=== PATIENT | male | born 1945 | race Caucasian/White ===

== ENCOUNTER → 2016-05-21 | Outpatient (CLI) | payer MEDICARE ==
--- NOTE | 2016-05-21 23:23 | PN ---
This 71-year-old male patient has obstructive sleep apnea and is coming in for his yearly check. He has severe disease with an AHI of 67 and the patient is utilizing an Auto CPAP unit with a pressure minimum of 5, maximum of 20. The patient is utilizing a Quattro Air full-face mask. The patient has gained weight. He used to weigh 266. Currently he is up to 285, gaining around 19 pounds. His CPAP compliance data was checked, and his average CPAP use is 6.4 hours per night. P90 pressure is at 13.7. Leak factor is 34 L/minute and his AHI is down to 12. His other comorbidities include diabetes mellitus, gout and restless leg syndrome. The increased leak that was seen on the compliance data was also noted clinically by the patient, as the patient is reporting increased leak around his nose bridge while using the full-face mask. BP is 140/68, pulse 84, respiration 16, temperature 97.8, saturation 98% on room air. Neck size is 20. Weight is 285. BMI is 46.1. GENERAL APPEARANCE: Calm, comfortable. HEENT: Negative for JVD. No goiter or neck masses. He has significant crowding of posterior pharynx. LUNGS: Diminished breath sounds bilaterally; otherwise clear. HEART: Sounds are regular rate and rhythm. Normal S1, S2. ABDOMEN: Soft, nontender. No organomegaly. EXTREMITIES: There is no edema. There is no cyanosis or clubbing at this point. IMPRESSION: 1. Severe obstructive sleep apnea with an AHI of 67, currently undergoing Auto CPAP therapy. 2. Obesity with interval weight gain on the order of 19 pounds. Current BMI is up to 46.1. 3. Increased air leak around his full-face mask. AHI is down to 12.2. PLAN: 1. Will offer this patient an AirFit F10 full-face mask. 2. Encourage weight loss. 3. Anticipate improvement in his leak and obviously improvement in his apnea-hypopnea scores while being on treatment. 4. Will continue to follow. The patient will see me back in 6 months' time in followup for review of his compliancy data.
== END | disposition home or self-care (01) ==

== ENCOUNTER 2016-06-10 04:31 | Inpatient (IN) | payer MEDICARE ==
[2016-06-10] MEDS ORDERED: KETOROLAC 30 MG/ML 1 ML VIAL IVP STA (04:46)
[2016-06-10] MEDS ORDERED: ACETAMINOPHEN IV (For NPO) 1,000 MG in EMPTY BAG 1 BAG IVPB STA (04:46)
--- NOTE | 2016-06-10 04:46 | ED ---
General Adult HPI - General Chief complaint: Chest Pain Stated complaint: Chest Pain Time Seen by Provider: 06/10/16 04:32 Source: patient, RN notes reviewed, old records reviewed Mode of arrival: EMS Limitations: no limitations - History of Present Illness Initial comments: This is a 71-year-old male here for evaluation of chest pain, anterior chest pain with occasional shortness of breath. Patient doesn't significant heart history, and significant medical history. Patient states he was laying in bed became anxious that he was having a heart attack and called to his , his does not answer. Patient didn't continue to ambulate for fear of having heart attack and became increasing anxious. Patient is finally able to get her attention, any stone to the emergency. Patient states that this time his pain is improved no significant source of breath, he does not mild fever and chills or recent, no sick contacts or travel history. Patient states he is taking medications as provided for himself. - Related Data Home Medications Medication Instructions Recorded Confirmed Aspirin 162 mg PO DAILY 10/24/13 06/10/16 DULoxetine HCL [Cymbalta] 60 mg PO BID 10/24/13 06/10/16 Furosemide [Lasix] 40 mg PO BID 10/24/13 06/10/16 Gabapentin [Neurontin] 600 mg PO BID 10/24/13 06/10/16 Gabapentin [Neurontin] 800 mg PO BID 10/24/13 06/10/16 Insulin Aspart [NovoLOG] See Protocol SQ CONTINUOUS 10/24/13 06/10/16 Ubidecarenone [Co Q-10] 100 mg PO DAILY 05/14/14 06/10/16 Vitamin E (Dl,Tocopheryl Acet) 400 unit PO DAILY 05/14/14 06/10/16 [Vitamin E] Silodosin [Rapaflo] 8 mg PO DAILY 08/26/14 06/10/16 Ascorbic Acid [Vitamin C] 1,000 mg PO HS 08/14/15 06/10/16 Cholecalciferol [Vitamin D3] 2,000 unit PO DAILY 08/14/15 06/10/16 Magnesium Oxide [Mag-Ox] 250 mg PO Q48H 08/14/15 12/19/15 Multivit-Min/FA/Lycopene/Lut 1 tab PO DAILY 08/14/15 06/10/16 [Centrum Silver Tablet] [place]-3 Fatty Acids/Fish Oil [Fish 1 cap PO HS 08/14/15 06/10/16 Oil 1,000 mg Softgel] Potassium 99 mg PO Q48H 08/14/15 06/10/16 Vitamin B Complex 1 cap PO DAILY 08/14/15 06/10/16 metFORMIN HCL ER [Glucophage Xr] 500 mg PO BID 08/14/15 06/10/16 Biotin 5,000 mcg PO HS 10/11/15 06/10/16 Calcium Carbonate [Calcium] 500 mg PO Q48H 10/11/15 06/10/16 Metoprolol Tartrate [Lopressor] 50 mg PO TID 10/11/15 06/10/16 Simvastatin [Zocor] 40 mg PO HS 10/11/15 06/10/16 Lisinopril [Prinivil] 12.5 mg PO HS 12/18/15 06/10/16 Alfuzosin HCl [Alfuzosin HCl ER] 10 mg PO DAILY 06/10/16 06/10/16 Isosorbide Mononitrate ER [Imdur] 30 mg PO DAILY 06/10/16 06/10/16 Magnesium 400 mg PO BID 06/10/16 06/10/16 Omeprazole 40 mg PO BID 06/10/16 06/10/16 Allergies Allergy/AdvReac Type Severity Reaction Status Date / Time adhesive tape Allergy Rash/Hives Verified 06/10/16 05:37 ciprofloxacin HCl Allergy Unknown Verified 06/10/16 05:37 [From Cipro] diphenhydramine HCl Allergy Rapid Verified 06/10/16 05:37 [From Benadryl] Heart Rate morphine Allergy BLOCKS Verified 06/10/16 05:37 BLADDER nitrofurantoin Allergy Unknown Verified 06/10/16 05:37 macrocrystalline [From Macrobid] Review of Systems ROS Statement: Those systems with pertinent positive or pertinent negative responses have been documented in the HPI. ROS Other: All systems not noted in ROS Statement are negative. Past Medical History Past Medical History: Atrial Fibrillation, Coronary Artery Disease (CAD), CVA/ TIA, Diabetes Mellitus, GERD/Reflux, Hyperlipidemia, Hypertension, Memory Impairment, Musculoskeletal Disorder, Neurologic Disorder, Osteoarthritis (OA), Prostate Disorder, Sleep Apnea/CPAP/BIPAP, Syncope, Vascular Disorder Additional Past Medical History / Comment(s): cva x 3, multiple tia, multiple syncope episodes, gout, CELLULITIS FAHEEM LEGS, diabetic neuropathy, INSULIN PUMP FOR YEARS, 2 HEART STENTS, COUGH WITH HEMOPTYSIS History of Any Multi-Drug Resistant Organisms: MRSA Date of last positivie culture/infection: 2012 MDRO Source:: Right Leg and Left Leg Past Surgical History: Heart Catheterization With Stent, Hernia Repair, Orthopedic Surgery, Pacemaker Additional Past Surgical History / Comment(s): colonoscopy, 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 bilateral hand surg. for trigger finger & other hand surg FAHEEM cataract surg. 08-29-14 PACEMAKER INSERTION, UMBILICAL HERNIA REPAIR Past Anesthesia/Blood Transfusion Reactions: No Reported Reaction Date of Last Stent Placement:: 1998 Type of Cardiac Device: Permanent Pacemaker Device Placement Date:: MEDTRONIC 09-08-14 Past Psychological History: No Psychological Hx Reported Smoking Status: Never smoker Past Alcohol Use History: None Reported Past Drug Use History: None Reported - Past Family History Mother Family Medical History: CVA/TIA, Dementia Additional Family Medical History / Comment(s): STILL ALIVE AT AGE 95 HAS BEGININGS OF DEMENTIA Father Family Medical History: Congestive Heart Failure (CHF) Additional Family Medical History / Comment(s): Brother(s) Family Medical History: Liver Disease Additional Family Medical History / Comment(s): etoh abuse- General Exam Limitations: no limitations General appearance: alert, in no apparent distress Head exam: Present: atraumatic, normocephalic, normal inspection Eye exam: Present: normal appearance, PERRL, EOMI. Absent: scleral icterus, conjunctival injection, periorbital swelling ENT exam: Present: normal exam, mucous membranes moist Neck exam: Present: normal inspection. Absent: tenderness, meningismus, lymphadenopathy Respiratory exam: Present: normal lung sounds bilaterally. Absent: respiratory distress, wheezes, rales, rhonchi, stridor Cardiovascular Exam: Present: regular rate, normal rhythm, normal heart sounds. Absent: systolic murmur, diastolic murmur, rubs, gallop, clicks GI/Abdominal exam: Present: soft, normal bowel sounds. Absent: distended, tenderness, guarding, rebound, rigid Extremities exam: Present: normal inspection, full ROM, normal capillary refill. Absent: tenderness, pedal edema, joint swelling, calf tenderness Back exam: Present: normal inspection Neurological exam: Present: alert, oriented X3, CN II-XII intact Psychiatric exam: Present: normal affect, normal mood Skin exam: Present: warm, dry, intact, normal color. Absent: rash Course Vital Signs 06/10/16 06/10/16 04:36 06:08 Temperature 100.6 F H Pulse Rate 83 58 L Respiratory 18 18 Rate Blood Pressure 166/70 131/63 O2 Sat by Pulse 95 96 Oximetry - Reevaluation(s) Reevaluation #1: 06/10/16 05:31 Patient's improving with fever control EKG Findings - EKG Comments: EKG Findings:: EKG shows ventricle paced rhythm rate of 72, QRS 160, QTC 480 Medical Decision Making - Medical Decision Making 71 year fevers or chest pain, states he feels a year heartache, significant heart disease, patient's initial EKG and troponin are negative, patient be admitted for cardiac observation and anticoagulation. Patient also has elevated fever, x-ray negative, flu test negative will observe with fever control - Lab Data Result diagrams: 06/10/16 04:50 06/10/16 04:50 Lab Results 06/10/16 06/10/16 06/10/16 Range/Units 04:50 04:50 04:50 WBC 10.7 H (3.8-10.6) k/uL RBC 4.70 (4.30-5.90) m/uL Hgb 13.9 (13.0-17.5) gm/dL Hct 42.0 (39.0-53.0) % MCV 89.4 (80.0-100.0) fL MCH 29.5 (25.0-35.0) pg MCHC 33.0 (31.0-37.0) g/dL RDW 14.3 (11.5-15.5) % Plt Count 183 (150-450) k/uL Neutrophils % 70 % Lymphocytes % 14 % Monocytes % 6 % Eosinophils % 7 % Basophils % 1 % Neutrophils # 7.5 (1.3-7.7) k/uL Lymphocytes # 1.5 (1.0-4.8) k/uL Monocytes # 0.7 (0-1.0) k/uL Eosinophils # 0.7 (0-0.7) k/uL Basophils # 0.1 (0-0.2) k/uL PT (9.0-12.0) sec INR (<1.1) APTT (22.0-30.0) sec Sodium 140 (137-145) mmol/L Potassium 4.7 (3.5-5.1) mmol/L Chloride 105 (98-107) mmol/L Carbon Dioxide 25 (22-30) mmol/L Anion Gap 10 mmol/L BUN 20 (9-20) mg/dL Creatinine 0.80 (0.66-1.25) mg/dL Est GFR (MDRD) Af Amer >60 (>60 ml/min/1.73 sqM) Est GFR (MDRD) Non-Af >60 (>60 ml/min/1.73 sqM) Glucose 154 H (74-99) mg/dL Calcium 8.9 (8.4-10.2) mg/dL Magnesium 1.8 (1.6-2.3) mg/dL Total Bilirubin 1.9 H (0.2-1.3) mg/dL AST 43 (17-59) U/L ALT 30 (21-72) U/L Alkaline Phosphatase 105 (38-126) U/L Total Creatine Kinase 87 (55-170) U/L CK-MB (CK-2) 1.2 (0.0-2.4) ng/mL CK-MB (CK-2) Rel Index 1.4 Troponin I 0.017 (0.000-0.034) ng/mL NT-Pro-B Natriuret Pep pg/mL Total Protein 7.1 (6.3-8.2) g/dL Albumin 3.8 (3.5-5.0) g/dL Lipase 48 (23-300) U/L Influenza Type A RNA (Not Detectd) Influenza Type B (PCR) (Not Detectd) 06/10/16 06/10/16 06/10/16 Range/Units 04:50 04:50 05:10 WBC (3.8-10.6) k/uL RBC (4.30-5.90) m/uL Hgb (13.0-17.5) gm/dL Hct (39.0-53.0) % MCV (80.0-100.0) fL MCH (25.0-35.0) pg MCHC (31.0-37.0) g/dL RDW (11.5-15.5) % Plt Count (150-450) k/uL Neutrophils % % Lymphocytes % % Monocytes % % Eosinophils % % Basophils % % Neutrophils # (1.3-7.7) k/uL Lymphocytes # (1.0-4.8) k/uL Monocytes # (0-1.0) k/uL Eosinophils # (0-0.7) k/uL Basophils # (0-0.2) k/uL PT 11.1 (9.0-12.0) sec INR 1.1 (<1.1) APTT 23.8 (22.0-30.0) sec Sodium (137-145) mmol/L Potassium (3.5-5.1) mmol/L Chloride (98-107) mmol/L Carbon Dioxide (22-30) mmol/L Anion Gap mmol/L BUN (9-20) mg/dL Creatinine (0.66-1.25) mg/dL Est GFR (MDRD) Af Amer (>60 ml/min/1.73 sqM) Est GFR (MDRD) Non-Af (>60 ml/min/1.73 sqM) Glucose (74-99) mg/dL Calcium (8.4-10.2) mg/dL Magnesium (1.6-2.3) mg/dL Total Bilirubin (0.2-1.3) mg/dL AST (17-59) U/L ALT (21-72) U/L Alkaline Phosphatase (38-126) U/L Total Creatine Kinase (55-170) U/L CK-MB (CK-2) (0.0-2.4) ng/mL CK-MB (CK-2) Rel Index Troponin I (0.000-0.034) ng/mL NT-Pro-B Natriuret Pep 1320 pg/mL Total Protein (6.3-8.2) g/dL Albumin (3.5-5.0) g/dL Lipase (23-300) U/L Influenza Type A RNA Not Detected (Not Detectd) Influenza Type B (PCR) Not Detected (Not Detectd) - Radiology Data Radiology results: report reviewed (Chest x-ray 2 views negative for acute disease), image reviewed Critical Care Time Critical Care Time: Yes Total Critical Care Time: 31 Disposition Clinical Impression: Chest pain, Fever of unknown origin Disposition: ADMITTED IP TO THIS HOSP Condition: Fair Referrals: Domenico Pickard MD [Primary Care Provider] - 1-2 days
[2016-06-10 05:16] LABS: Basophils # (A) 0.1 k/uL (0-0.2); Basophils % (A) 1 %; CH 29.7; CHCM 33.3; Eosinophils # (A) 0.7 k/uL (0-0.7); Eosinophils % (A) 7 %; HDW 2.94; HGB 13.9 gm/dL (13.0-17.5); Luc # (Auto) 0.27; Luc % (Auto) 3; Lymphocytes # (A) 1.5 k/uL (1.0-4.8); Lymphocytes % (A) 14 %; MCH 29.5 pg (25.0-35.0); MCV 89.4 fL (80.0-100.0); Mean Platelet Volume 7.5; Monocytes # (A) 0.7 k/uL (0-1.0); Monocytes % (A) 6 %; Neutrophils # (A) 7.5 k/uL (1.3-7.7); Neutrophils % (A) 70 %; RDW 14.3 % (11.5-15.5); WBC 10.7 k/uL (3.8-10.6); WBC (Perox) 11.11
[2016-06-10 05:27] LABS: ALT 30 U/L (21-72); AST 43 U/L (17-59); Alkaline Phosphatase 105 U/L (38-126); Anion Gap 10 mmol/L; Blood Urea Nitrogen 20 mg/dL (9-20); Calcium 8.9 mg/dL (8.4-10.2); Carbon Dioxide 25 mmol/L (22-30); Chloride 105 mmol/L (98-107); Glucose 154 mg/dL (74-99); Magnesium 1.8 mg/dL (1.6-2.3); Non-African American GFR(MDRD) >60 (>60 ml/min/1.73 sqM); Potassium 4.7 mmol/L (3.5-5.1); Sodium 140 mmol/L (137-145); Total Bilirubin 1.9 mg/dL (0.2-1.3); Total Protein 7.1 g/dL (6.3-8.2)
[2016-06-10] MEDS ORDERED: ASPIRIN 81 MG CHEW PO STA (05:34)
[2016-06-10] MEDS ORDERED: NITROGLYCERIN SL TABS 0.4 MG TAB SUBLINGUAL PRN ×2 (05:34→08:19)
[2016-06-10] MEDS ORDERED: HEPARIN SODIUM,PORCINE 5,000 UNIT/ML 1 ML VIAL IV ONE (05:34)
--- NOTE | 2016-06-10 05:39 | XR ---
EXAMINATION TYPE: XR chest 2V DATE OF EXAM: 06/10/2016 5:02 AM COMPARISON: 12/15/2015 HISTORY: Chest pain TECHNIQUE: Frontal and lateral views of the chest are obtained. FINDINGS: Heart is enlarged. There is evidence of mild pulmonary edema. There is left axillary pacem christy with the lead tips in the right ventricle. There are no hilar masses. There is no pleural effusi on. IMPRESSION: There is evidence of new mild pulmonary edema compared to last exam. Cardiomegaly.
[2016-06-10 05:45] LABS: INR 1.1 (<1.1); Partial Thromboplastin Time 23.8 sec (22.0-30.0); Prothrombin Time 11.1 sec (9.0-12.0)
[2016-06-10] MEDS ORDERED: HEPARIN SODIUM,PORCINE/D5W PMX 25,000 UNIT in DEXTROSE/WATER 1 500ML.BAG IV SCH (05:45)
[2016-06-10 05:49] LABS: Creatine Kinase MB 1.2 ng/mL (0.0-2.4); Troponin I 0.017 ng/mL (0.000-0.034)
[2016-06-10] MEDS ORDERED: HEPARIN SODIUM,PORCINE 5,000 UNIT/ML 1 ML VIAL IV PRN (06:55)
[2016-06-10 08:11] VITALS: BMI 40.4
[2016-06-10] MEDS ORDERED: ALPRAZolam 0.5 MG TAB PO PRN (08:19)
[2016-06-10] MEDS ORDERED: ALPRAZolam 0.25 MG TAB PO PRN (08:19)
[2016-06-10] MEDS ORDERED: ASPIRIN 325 MG TAB PO STA (08:19)
[2016-06-10] MEDS ORDERED: ATORVASTATIN 80 MG TAB PO STA (08:19)
[2016-06-10] MEDS ORDERED: SODIUM CHLORIDE 0.9% 1,000 ML in EMPTY BAG 1 BAG IV ONE (08:19)
--- NOTE | 2016-06-10 08:30 | CONS ---
DATE OF CONSULTATION: CHIEF COMPLAINT: Chest pain. Tip is a 71-year-old gentleman with history of permanent pacemaker, coronary artery disease, status post angioplasty, hypertension, and [id number]-[id number] diabetes and morbid obesity who comes to hospital complaining of chest pain. He describes it as a precordial chest pressure that radiated to his left arm, moderate intensity, came on at rest, unrelated to exertion and associated with diaphoresis. Patient gradually became pain free with intravenous heparin and nitrates. At the time of my evaluation, he is pain free and hemodynamically stable. He has had one set of troponin that is negative. EKG shows paced rhythm. Past medical history is significant for coronary artery disease, status post angioplasty, hypertension, [id number] diabetes. Medications include aspirin, Prinivil, magnesium ProAir, Imdur, vitamin E, D, Co-Q10, Zocor 40 q. daily, Rapaflo, fish oil, multivitamin, Lopressor 50 t.i.d., Neurontin, Lasix, Cymbalta, calcium, vitamin C, and Glucophage. Allergic to CIPRO, BENADRYL, MORPHINE and MACROBID. Family history is negative for premature coronary artery disease. Social history is negative for current smoking, EtOH abuse, or drug abuse. REVIEW OF SYSTEMS: HEENT is unremarkable. CARDIAC: As described above. RESPIRATORY: Negative. GI: Negative. GENITOURINARY: Negative. ALLERGY/IMMUNOLOGY: Negative. MUSCULOSKELETAL: Negative. ENDOCRINE: Negative. DERM: Negative. CONSTITUTIONAL: Negative. ONCOLOGICAL: Negative. The rest of the system review is not relevant. On exam, comfortable at rest. Vital signs are stable. There is no jugular venous distention. Carotid upstroke is normal. There is no bruit. Chest exam reveals good air entry bilaterally. Heart exam reveals first and second heart sounds. No gallop, no murmur. Abdomen is soft, nontender. Exam of extremities did not reveal any edema. Peripheral pulses are felt. EKG is as described above. Cardiac enzymes are negative. Creatinine is normal. ASSESSMENT: 1. Unstable angina. 2. Sick sinus syndrome, status post permanent pacemaker placement. 3. Paroxysmal atrial fibrillation. PLAN: Patient is pain free at the moment. Will admit him to hospital and will need to go through cardiac catheterization and hopefully tomorrow by Dr. Christofer Vargas.
[2016-06-10 08:39] LABS: Glucose,Whole Blood 134 mg/dL (75-99)
[2016-06-10] MEDS: FUROSEMIDE 40 MG TAB PO SCH ×2 (12:07→20:42)
[2016-06-10] MEDS: ISOSORBIDE MONONITRATE ER 30 MG TAB.ER.24H PO SCH (12:07)
[2016-06-10] MEDS: metFORMIN 500 MG TAB PO SCH ×2 (12:08→18:09)
[2016-06-10] MEDS: INSULIN LISPRO (humaLOG) 300 UNIT/3 ML VIAL SQ SCH ×3 (12:08→20:42)
[2016-06-10] MEDS: MULTIVITAMINS, THERA 1 EACH TAB PO SCH (12:08)
--- NOTE | 2016-06-10 12:12 | HP ---
DATE OF ADMISSION: 06/10/2016 PRESENTING COMPLAINT: Chest pain. HISTORY OF PRESENTING COMPLAINT: This is a very pleasant 71-year-old patient with rather extensive medical history. Patient's family doctor is Dr. Domenico Pickard. Patients chronic stable medical conditions include diabetes mellitus type 2 on insulin pump, GERD, hyperlipidemia, hypertension, osteoarthritis, sleep apnea, atrial fibrillation has a pacemaker. Patient around 3:00 in the morning woke up with a sharp chest pain in the infraclavicular around the nipple area. Lasted for 30 seconds. Then patient had a compression-like sensation of the chest for a good 15 minutes at least. There is also numbness down the left arm. Patient became short of breath. Because of the entire presentation, he was concerned and decided to come in. Patient normally otherwise able to get around with no chest pain. Admitted with unstable angina. Patient has been having intermittent hemoptysis for which he follows a block cleaner in outpatient. REVIEW OF SYSTEMS: CONSTITUTIONAL: None. HEENT: None. RESPIRATORY: As above. CARDIOVASCULAR: As above. GASTROINTESTINAL: None. GENITOURINARY: None. MUSCULOSKELETAL: Pain in the joints. HEMATOLOGIC: None. LYMPHATICS: None. PSYCHIATRY: None. NEUROLOGICAL: Numbness, tingling in the feet. DERMATOLOGICAL: None. Past medical history of coronary artery disease, diabetes mellitus type 2, GERD, hyperlipidemia, hypertension, osteoarthritis, sleep apnea, paroxysmal atrial fibrillation, gout, diabetic neuropathy, abdominal hernia. PAST SURGICAL HISTORY: Cardiac cath with stent, hypertension, amputation of the third toe of the left foot, rotator cuff injury, bilateral hand surgery for trigger finger, pacemaker. SOCIAL HISTORY: Nonsmoker, , drinks alcohol occasionally, retired. Family history of dementia, congestive heart failure. HOME MEDICATIONS: 1. Metformin. 2. Glucophage XL 500 mg p.o. b.i.d. 3. Vitamin E 400 units p.o. daily. 4. Vitamin B complex 1 capsule p.o. daily. 5. CoQ10 one hundred mg p.o. daily. 6. Zocor 40 mg q.h.s. 7. Rapaflo 8 mg p.o. daily. 8. Potassium 99 mEq p.o. q.48 hours. 9. Fish oil 1 capsule p.o. q.h.s. 10. Centrum Silver 1 tablet p.o. daily. 11. Lopressor 50 mg p.o. t.i.d. 12. Magnesium oxide 250 mg p.o. q.48 hours. 13. Magnesium 400 mg p.o. b.i.d. 14. Prinivil 5 mg p.o. q.h.s. 15. Imdur ER 30 mg p.o. daily. 16. NovoLog insulin pump. 17. Neurontin 800 mg p.o. b.i.d. 18. Neurontin 600 mg p.o. b.i.d. 19. Lasix 40 mg p.o. b.i.d. 20. Cymbalta 60 mg b.i.d. 21. Vitamin D3 two thousand units p.o. q.48 hours. 22. Calcium 500 units p.o. q. 48. 23. Biotin 5000 mcg p.o. q.h.s. 24. Aspirin 81 mg p.o. b.i.d. 25. Vitamin C 1000 mg p.o. q.h.s. 26. Alfuzosin 10 mg p.o. daily. 27. ProAir 1 to 2 puffs q.6 p.r.n. Allergies to ADHESIVE, CIPRO, BENADRYL, MORPHINE, NITROFURANTOIN. On examination, vitals signs on presentation: Temperature 100.6, pulse 83, respirations 18, blood pressure 160/70, pulse ox 95% on 2 L. Repeat temperature 99.1. GENERAL APPEARANCE: Obese; BMI of 41.5. Lying in bed, not in distress. EYES: Pupils equal. Conjunctivae normal. HEENT: External appearance of nose and ears normal. Oral cavity normal. NECK: JVD unable to assess. Mass not palpable. Respiratory effort increased. LUNGS: Diminished breath sounds. CARDIOVASCULAR: First and second sounds normal, some mild edema. ABDOMEN: Distended, soft. Liver and spleen not palpable. LYMPHATIC: No lymph nodes palpable in neck or axillae. PSYCHIATRY: Alert and oriented x3. Mood and affect normal. NEUROLOGICAL: Pupils equal. Cranial nerves grossly intact, slightly decreased sensation in the feet. INVESTIGATIONS: White count 10.7, hemoglobin 13.9. Potassium 4.7, influenza A and B is negative. Chest x-ray shows possibly pulmonary edema and there is questionable infiltrate at the base. ASSESSMENT: 1. Possible pneumonia in a patient with low-grade fever, sharp pain, high white count, community-acquired. 2. Possible unstable angina in a patient with known coronary artery disease and stent. 3. Paroxysmal atrial fibrillation. 4. Diabetes mellitus type 2, chronically on insulin pump. 5. Gastroesophageal reflux disease. 6. Hyperlipidemia. 7. Essential hypertension. 8. Primary osteoarthritis of multiple joints, bilateral. 9. Benign prostatic hypertrophy. 10. Chronic sleep apnea. 11. Diabetes causing peripheral neuropathy. PLAN: Patient was put on IV heparin. Will also start the patient on IV ceftriaxone. Cardiology has been consulted. Care was discussed with the patient.
[2016-06-10 12:24] LABS: Glucose,Whole Blood 157 mg/dL (75-99)
[2016-06-10] MEDS: GABAPENTIN 300 MG CAP PO SCH ×2 (12:39→20:34)
[2016-06-10] MEDS: DULoxetine HCL 60 MG CAPSULE.DR PO SCH ×2 (12:40→20:34)
[2016-06-10 12:48] LABS: Creatine Kinase MB 1.2 ng/mL (0.0-2.4); Troponin I 0.03 ng/mL (0.000-0.034)
[2016-06-10 13:32] LABS: Hemoglobin A1C 8.5 % (4.2-6.1)
[2016-06-10] MEDS: ALBUTEROL NEBULIZED 2.5 MG/3 ML INHALATION SCH ×2 (15:39→21:46)
[2016-06-10] MEDS: METOPROLOL TARTRATE 50 MG TAB PO SCH ×2 (15:53→20:34)
[2016-06-10 17:13] LABS: Glucose,Whole Blood 177 mg/dL (75-99)
[2016-06-10 17:54] LABS: Creatine Kinase MB 1.3 ng/mL (0.0-2.4); Troponin I 0.026 ng/mL (0.000-0.034)
[2016-06-10 20:22] LABS: Glucose,Whole Blood 216 mg/dL (75-99)
[2016-06-10] MEDS ORDERED: ACETAMINOPHEN TAB 325 MG TAB PO PRN (20:27)
[2016-06-10] MEDS: MAGNESIUM OXIDE 400 MG TAB PO SCH (20:34)
[2016-06-10] MEDS ORDERED: DULoxetine HCL 60 MG CAPSULE.DR PO SCH (21:00)
[2016-06-10] MEDS ORDERED: NON-FORMULARY DRUG (Simvastatin [Zocor] 40 MG) PO SCH (21:00)
[2016-06-10] MEDS ORDERED: LISINOPRIL 5 MG TAB PO SCH (21:00)
[2016-06-10] MEDS ORDERED: NON-FORMULARY DRUG (Omega-3 Fatty Acids/Fish Oil [Fish Oil 1,000 Mg Softgel] 1 CAP) PO SCH (21:00)
[2016-06-10] MEDS ORDERED: GABAPENTIN 300 MG CAP PO SCH (21:00)
[2016-06-11] MEDS: ALBUTEROL NEBULIZED 2.5 MG/3 ML INHALATION SCH ×3 (00:42→12:20)
[2016-06-11] MEDS ORDERED: ALBUTEROL NEBULIZED 2.5 MG/3 ML INHALATION PRN (00:46)
[2016-06-11 07:13] LABS: Glucose,Whole Blood 330 mg/dL (75-99)
[2016-06-11] MEDS: GABAPENTIN 300 MG CAP PO SCH (07:57)
[2016-06-11] MEDS ORDERED: REGADENOSON 0.4 MG/5 ML SYRINGE IV ONE (07:58)
[2016-06-11] MEDS ORDERED: AMINOPHYLLINE 500 MG/20 ML VIAL IV PRN (07:58)
[2016-06-11] MEDS: INSULIN LISPRO (humaLOG) 300 UNIT/3 ML VIAL SQ SCH ×3 (08:10→17:53)
[2016-06-11 08:40] VITALS: RESP 18
[2016-06-11] MEDS ORDERED: ASPIRIN 325 MG TAB PO SCH (09:00)
[2016-06-11] MEDS ORDERED: B COMPLEX-VIT C-VIT E-ZINC 1 EACH TAB PO SCH (09:00)
--- NOTE | 2016-06-11 10:43 | EST ---
DATE OF SERVICE: 06/11/2016 AGE: 71Y SEX: M HT: 70" WT: 289 lbs. Protocol Arslan: Other: Lexiscan Cardiolite Stage: Dur. of Exercise: *Heart Rate Blood Pressure *Rest: 62 Rest: 180/67 * *Max. Achieved: 72 Maximum BP: 187/54 85% PMHR: 126 100% PMHR: 148 *METS: INDICATION OF STUDY: Chest pain. MEDICATIONS: STRESS DATA: Pretesting physical examination showed heart rate of 62, pressure is 182/67 mmHg. Baseline EKG showed sinus rhythm PVCs. A 0.4 mg of Lexiscan was given to the patient over 15 seconds per protocol. Max heart rate was 72 beats per minute and maximum pressure was 187/54 mmHg. Clinically, the patient did not have any symptoms and the EKG did not show any significant ST or T wave abnormalities consistent with ischemia. CONCLUSION: 1. Nondiagnostic electrocardiogram stress test in response to Lexiscan. 2. Please follow up on the Cardiolite portion on separate report from the radiology department.
[2016-06-11] MEDS: MULTIVITAMINS, THERA 1 EACH TAB PO SCH (11:18)
[2016-06-11] MEDS: DULoxetine HCL 60 MG CAPSULE.DR PO SCH (11:18)
[2016-06-11] MEDS: metFORMIN 500 MG TAB PO SCH ×2 (11:18→17:52)
[2016-06-11] MEDS: FUROSEMIDE 40 MG TAB PO SCH ×2 (11:18→17:53)
[2016-06-11] MEDS: ISOSORBIDE MONONITRATE ER 30 MG TAB.ER.24H PO SCH (11:19)
[2016-06-11] MEDS: METOPROLOL TARTRATE 50 MG TAB PO SCH ×2 (11:19→17:53)
[2016-06-11] MEDS: MAGNESIUM OXIDE 400 MG TAB PO SCH (11:19)
[2016-06-11 12:11] LABS: Glucose,Whole Blood 297 mg/dL (75-99)
--- NOTE | 2016-06-11 12:22 | NM ---
EXAMINATION TYPE: NM stress lexiscan cardiolite DATE OF EXAM: 06/11/2016 11:13 AM COMPARISON: NONE HISTORY: History of hypertension, diabetes, angina, 3 prior strokes, prior heart attack, hypercholest erolemia, family history of heart disease, and prior catheterization with two-vessel angioplasty pres ents with chest pain, shortness of breath, and palpitations. TECHNIQUE: After the intravenous administration of 10.35 mCi Tc 99m Sestamibi - Cardiolite resting S PECT images acquired 71 minutes post injection. The patient received 0.4mg Lexiscan, 27 mCi Tc 99m Sestamibi - Stress images obtained 48 minutes post injection FINDINGS: Review of stress and rest SPECT images demonstrates diminished uptake involving the anterior septal w all prominent vertical long axis views towards the base and mid segment suggesting old infarct. There is no convincing evidence for reversible ischemia. Gated analysis shows normal wall motion with an estimated left ventricular ejection fraction of 59 %. IMPRESSION: No convincing scintigraphic evidence for reversible ischemia. Old infarct suspected.
[2016-06-11 12:28] LABS: Mean Platelet Volume 6.9
--- NOTE | 2016-06-11 12:47 | PN ---
A 71-year-old gentleman with history of coronary artery disease, status post angioplasty, status post permanent pacemaker placement, who came to hospital with chest pain. He follows with Dr. Christofer Vargas my associate. After reviewing his outpatient records and prior angiographic data with Dr. Vargas and I have decided to do a stress test on him and if this is abnormal perform cardiac catheterization. I have explained risks, benefits. Patient understands and is in agreement with the plans. Patient this morning is doing well. Denies chest pain, difficulty in breathing or palpitations. Cardiac enzymes are negative. On exam he is comfortable at rest. Vital signs are stable. There is no jugular venous distention. Carotid upstroke is normal. There is no bruit. Chest exam reveals good air entry bilaterally. Heart exam reveals first and second heart sounds. No gallop. No murmur, no rub. Abdomen is soft, nontender. Exam of the extremities did not reveal any edema. Peripheral pulses are felt. ASSESSMENT: 1. Chest pain. 2. Coronary artery disease, status post angioplasty. 3. Sick sinus syndrome, status post permanent pacemaker. PLAN: Patient is doing well. He will undergo a stress test today. If this is negative he will be discharged home and follow up with Dr. Vargas. If this is abnormal, he will undergo cardiac catheterization.
[2016-06-11 12:50] LABS: Cholesterol 150 mg/dL (<200); HDL Cholesterol 52 mg/dL (40-60); Triglycerides 126 mg/dL (<150)
[2016-06-11 15:48] VITALS: BP 132/62; PULSE 55; TEMP 99.8
[2016-06-11 17:19] LABS: Glucose,Whole Blood 319 mg/dL (75-99)
--- NOTE | 2016-06-13 10:54 | DS ---
DATE OF ADMISSION: 06/10/2016 DATE OF DISCHARGE: 06/11/2016 FINAL DIAGNOSES: 1. Pneumonia, community-acquired, suspect gram-negative organism, present on admission. 2. Chest wall pain, probably from underlying pneumonia. 3. Paroxysmal atrial fibrillation. 4. Diabetes mellitus type 2, chronically on insulin pump. 5. gastroesophageal reflux disease. 6. Hyperlipidemia. 7. Essential hypertension. 8. Primary osteoarthritis multiple joints, bilateral. 9. Benign prostatic hypertrophy. 10. Chronic sleep apnea. 11. Diabetes causing peripheral neuropathy. HOSPITAL COURSE: This patient presented with cough, short of breath, fever, white count fell to be pneumonia, responded well to antibiotics. The patient had a ( ) nuclear stress test as per Dr. Alejandra Adames that was negative. Patient feeling better at the time of discharge. Care was discussed in detail with the patient and the . Questions were answered. On examination: LUNGS: Improved air entry. CARDIOVASCULAR: First and second seconds normal. Discharge planning more than 35 minutes. DISCHARGE MEDICATIONS: 1. Aspirin 81 mg b.i.d. 2. Cymbalta 60 mg b.i.d. 3. Lasix 40 mg p.o. b.i.d. 4. Neurontin 600 mg b.i.d. 5. Neurontin 800 mg p.o. b.i.d. 6. NovoLog insulin pump. 7. CoQ10 100 mg p.o. daily. 8. Vitamin E 100 units p.o. daily. 9. ( ) 8 mg p.o. daily. 10. Vitamin C 1000 mg p.o. q.h.s. 11. Vitamin D3, 2000 p.o. q.48 hours. 12. Magnesium oxide 240 mg q. 48 hours. 13. Centrum Silver 1 tablet daily. 14. Fish oil 1 capsule p.o. q.h.s. 15. Potassium. 16. Vitamin B complex one capsule p.o. daily. 17. Glucophage XL 500 mg p.o. b.i.d. 18. Biotin 500 mcg p.o. q.h.s. 19. Calcium 500 mg for 8 hours. 20. Lopressor 50 mg p.o. t.i.d. 21. Zocor 40 mg q.h.s. 22. Prinivil 5 mg p.o. q.h.s. 23. Pro-Air one to two puffs q.6h p.r.n. 24. Alfuzosin ER 10 mg p.o. daily. 25. Imdur ER 30 mg daily. 26. Magnesium 400 mg p.o. b.i.d. 27. Augmentin 875 1 tablets q.12, 10 tablets. 28. Follow up with Dr. Christofer Vargas in one week. 29. Follow up with Dr. Pickard in 3 days. DC planning more than 35 minutes.
== END 2016-06-11 18:30 | disposition home or self-care (01) | DRG 178 ==
LOC: EC 04:31 → 3OBS 06:44 → OBSVTOIN 11:22
PROVIDERS: ADMIT Hospitalist; ATTEND Hospitalist
DX: J15.6 Pneumonia due to other Gram-negative bacteria (principal); Z68.41 Body mass index [BMI] 40.0-44.9, adult; E11.42 Type 2 diabetes mellitus with diabetic polyneuropathy; R04.2 Hemoptysis; I48.0 Paroxysmal atrial fibrillation; E66.01 Morbid (severe) obesity due to excess calories; E78.5 Hyperlipidemia, unspecified; K21.9 Gastro-esophageal reflux disease without esophagitis; M19.91 Primary osteoarthritis, unspecified site; G47.30 Sleep apnea, unspecified; I25.10 Atherosclerotic heart disease of native coronary artery without angina pectoris; I10 Essential (primary) hypertension; M10.9 Gout, unspecified; N40.0 Benign prostatic hyperplasia without lower urinary tract symptoms; Z95.0 Presence of cardiac pacemaker; Z95.5 Presence of coronary angioplasty implant and graft; Z96.41 Presence of insulin pump (external) (internal); Z79.4 Long term (current) use of insulin; Z89.422 Acquired absence of other left toe(s); Z86.73 Personal history of transient ischemic attack (TIA), and cerebral infarction without residual deficits; Z88.1 Allergy status to other antibiotic agents; Z88.5 Allergy status to narcotic agent; Z88.8 Allergy status to other drugs, medicaments and biological substances; Z79.84 Long term (current) use of oral hypoglycemic drugs; Z79.82 Long term (current) use of aspirin; Z79.899 Other long term (current) drug therapy; Z98.42 Cataract extraction status, left eye; Z98.41 Cataract extraction status, right eye; Z86.14 Personal history of Methicillin resistant Staphylococcus aureus infection
CPT/HCPCS: 36415; 71020; 78452; 80053; 80061; 82550; 82553; 83036; 83690; 83735; 83880; 84484; 85025; 85049; 85610; 85730; 87502; 93005; 93017; 94640; 94660; 96365; 96366; 96367; 96375; 96376; 99291

== ENCOUNTER → 2016-06-26 | Outpatient (CLI) | payer MEDICARE ==
--- NOTE | 2016-06-26 13:08 | FL ---
Modified barium swallow. HISTORY: Dysphagia. COMPARISON: 01/30/2016 Modified barium swallow was performed with the department of speech pathology. The patient was prese nted with various consistencies of barium. There is a deep penetration to the level of the vocal cords with thin and nectar thick barium unchang ed from prior examination. No evidence for aspiration at this time. Full report is to follow from the department of speech pathology. Impression: Essentially stable evaluation.
== END | disposition home or self-care (01) ==
LOC: RADFLMAIN 11:25
DX: R13.12 Dysphagia, oropharyngeal phase (principal)
CPT/HCPCS: 74230

== ENCOUNTER 2016-12-20 02:58 | Inpatient (IN) | payer MEDICARE ==
[2016-12-20] MEDS ORDERED: NITROGLYCERIN OINT 1 INCH/GM PACKET TOPICAL STA (03:22)
[2016-12-20] MEDS ORDERED: ASPIRIN 81 MG CHEW PO STA (03:22)
--- NOTE | 2016-12-20 03:25 | ED ---
General Adult HPI - General Chief complaint: Chest Pain Stated complaint: chest pain Time Seen by Provider: 12/20/16 03:16 Source: patient, family, RN notes reviewed Mode of arrival: wheelchair Limitations: no limitations - History of Present Illness Initial comments: Patient is a pleasant 71-year-old male presenting to the emergency department complaining of chest discomfort. Onset was around an hour ago while sleeping discomfort is mild at this time following taking 6 nitroglycerin at home. Patient did have some associated nausea and shortness of breath. No sweating. Patient did feel lightheaded. Discomfort felt like tightness. Patient states his lung sounds are normal for him. Patient states this is secondary to his chronic throat problem. - Related Data Home Medications Medication Instructions Recorded Confirmed Aspirin 81 mg PO BID 10/24/13 06/10/16 DULoxetine HCL [Cymbalta] 60 mg PO BID 10/24/13 12/20/16 Furosemide [Lasix] 40 mg PO BID 10/24/13 12/20/16 Gabapentin [Neurontin] 600 mg PO BID 10/24/13 12/20/16 Gabapentin [Neurontin] 800 mg PO BID 10/24/13 12/20/16 Insulin Aspart [NovoLOG] See Protocol SQ CONTINUOUS 10/24/13 12/20/16 Ubidecarenone [Co Q-10] 100 mg PO DAILY 05/14/14 12/20/16 Vitamin E (Dl,Tocopheryl Acet) 400 unit PO DAILY 05/14/14 12/20/16 [Vitamin E] Ascorbic Acid [Vitamin C] 1,000 mg PO HS 08/14/15 12/20/16 Cholecalciferol [Vitamin D3] 2,000 unit PO Q48H 08/14/15 12/20/16 Magnesium Oxide [Mag-Ox] 250 mg PO Q48H 08/14/15 12/20/16 Multivit-Min/FA/Lycopen/Lutein 1 tab PO DAILY 08/14/15 12/20/16 [Centrum Silver Tablet] [place]-3 Fatty Acids/Fish Oil [Fish 1 cap PO HS 08/14/15 12/20/16 Oil 1,000 mg Softgel] Potassium 99 mg PO Q48H 08/14/15 12/20/16 Vitamin B Complex 1 cap PO DAILY 08/14/15 12/20/16 metFORMIN HCL ER [Glucophage Xr] 500 mg PO BID 08/14/15 12/20/16 Biotin 5,000 mcg PO HS 10/11/15 12/20/16 Calcium Carbonate [Calcium] 500 mg PO Q48H 10/11/15 12/20/16 Metoprolol Tartrate [Lopressor] 50 mg PO TID 10/11/15 12/20/16 Simvastatin [Zocor] 40 mg PO HS 10/11/15 12/20/16 Lisinopril [Prinivil] 5 mg PO HS 12/18/15 12/20/16 Albuterol Sulfate [Proair Hfa] 1 - 2 puff INHALATION RT-Q6H PRN 06/10/16 Alfuzosin HCl [Alfuzosin HCl ER] 10 mg PO DAILY 06/10/16 12/20/16 Isosorbide Mononitrate ER [Imdur] 30 mg PO DAILY 06/10/16 12/20/16 Magnesium 400 mg PO BID 06/10/16 12/20/16 Allergies Allergy/AdvReac Type Severity Reaction Status Date / Time adhesive tape Allergy Rash/Hives Verified 12/20/16 03:18 ciprofloxacin HCl Allergy Unknown Verified 12/20/16 03:18 [From Cipro] diphenhydramine HCl Allergy Rapid Verified 12/20/16 03:18 [From Benadryl] Heart Rate morphine Allergy BLOCKS Verified 12/20/16 03:18 BLADDER nitrofurantoin Allergy Unknown Verified 12/20/16 03:18 macrocrystalline [From Macrobid] Review of Systems ROS Statement: Those systems with pertinent positive or pertinent negative responses have been documented in the HPI. ROS Other: All systems not noted in ROS Statement are negative. Constitutional: Denies: fever Eyes: Denies: eye pain ENT: Denies: ear pain Respiratory: Reports: cough (Occasional green sputum), dyspnea Cardiovascular: Reports: chest pain Endocrine: Denies: fatigue Gastrointestinal: Reports: nausea. Denies: abdominal pain Genitourinary: Denies: dysuria Musculoskeletal: Denies: back pain Skin: Denies: rash Neurological: Denies: weakness Past Medical History Past Medical History: Atrial Fibrillation, Coronary Artery Disease (CAD), CVA/ TIA, Diabetes Mellitus, GERD/Reflux, Hyperlipidemia, Hypertension, Memory Impairment, Musculoskeletal Disorder, Neurologic Disorder, Osteoarthritis (OA), Prostate Disorder, Sleep Apnea/CPAP/BIPAP, Syncope, Vascular Disorder Additional Past Medical History / Comment(s): cva x 3, multiple tia, multiple syncope episodes, gout, CELLULITIS FAHEEM LEGS, diabetic neuropathy, INSULIN PUMP FOR YEARS, 2 HEART STENTS, COUGH WITH HEMOPTYSIS History of Any Multi-Drug Resistant Organisms: MRSA Date of last positivie culture/infection: 08/06/11 MDRO Source:: Unknown Past Surgical History: Heart Catheterization With Stent, Hernia Repair, Orthopedic Surgery, Pacemaker Additional Past Surgical History / Comment(s): colonoscopy, 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 bilateral hand surg. for trigger finger & other hand surg FAHEEM cataract surg. 08-29-14 PACEMAKER INSERTION, UMBILICAL HERNIA REPAIR Past Anesthesia/Blood Transfusion Reactions: No Reported Reaction Date of Last Stent Placement:: 1998 Type of Cardiac Device: Permanent Pacemaker Device Placement Date:: [employer] 09-08-14 Past Psychological History: No Psychological Hx Reported Smoking Status: Never smoker Past Alcohol Use History: None Reported Past Drug Use History: None Reported - Past Family History Mother Family Medical History: CVA/TIA, Dementia Additional Family Medical History / Comment(s): STILL ALIVE AT AGE 95 HAS BEGININGS OF DEMENTIA Father Family Medical History: Congestive Heart Failure (CHF) Additional Family Medical History / Comment(s): Brother(s) Family Medical History: Liver Disease Additional Family Medical History / Comment(s): etoh abuse- General Exam Limitations: no limitations General appearance: alert, in no apparent distress, obese Head exam: Present: atraumatic Eye exam: Present: normal appearance, PERRL ENT exam: Present: normal oropharynx Neck exam: Present: normal inspection Respiratory exam: Present: rales Cardiovascular Exam: Present: regular rate, normal rhythm GI/Abdominal exam: Present: soft. Absent: tenderness Extremities exam: Present: pedal edema (+1 bilateral). Absent: calf tenderness Back exam: Present: normal inspection Neurological exam: Present: alert Psychiatric exam: Present: normal affect, normal mood Skin exam: Present: normal color Course Vital Signs 12/20/16 03:12 Temperature 98 F Pulse Rate 89 Respiratory 24 Rate Blood Pressure 145/67 O2 Sat by Pulse 94 L Oximetry EKG Findings - EKG Comments: EKG Findings:: Paced rhythm at 73. QRS 164. QT 448. QTC 493. Normal axis. Wide-complex QRS. Nonspecific ST-T. Previous EKG reviewed. Medical Decision Making - Medical Decision Making Patient reevaluated and resting comfortably in bed. Chest x-ray shows possible pneumonia and patient will be covered with antibiotics. Patient does meet Sirs criteria and therefore has potential for sepsis. Lactic acid and blood cultures will be drawn. - Lab Data Result diagrams: 12/20/16 03:20 12/20/16 03:20 Lab Results 12/20/16 12/20/16 12/20/16 Range/Units 03:20 03:20 03:20 WBC 10.8 H (3.8-10.6) k/uL RBC 4.87 (4.30-5.90) m/uL Hgb 14.7 (13.0-17.5) gm/dL Hct 45.9 (39.0-53.0) % MCV 94.3 (80.0-100.0) fL MCH 30.2 (25.0-35.0) pg MCHC 32.0 (31.0-37.0) g/dL RDW 15.2 (11.5-15.5) % Plt Count 250 (150-450) k/uL Neutrophils % 72 % Lymphocytes % 17 % Monocytes % 6 % Eosinophils % 3 % Basophils % 0 % Neutrophils # 7.7 (1.3-7.7) k/uL Lymphocytes # 1.9 (1.0-4.8) k/uL Monocytes # 0.6 (0-1.0) k/uL Eosinophils # 0.4 (0-0.7) k/uL Basophils # 0.0 (0-0.2) k/uL PT (9.0-12.0) sec INR (<1.2) APTT (22.0-30.0) sec Sodium 144 (137-145) mmol/L Potassium 3.9 (3.5-5.1) mmol/L Chloride 105 (98-107) mmol/L Carbon Dioxide 29 (22-30) mmol/L Anion Gap 10 mmol/L BUN 20 (9-20) mg/dL Creatinine 1.00 (0.66-1.25) mg/dL Est GFR (MDRD) Af Amer >60 (>60 ml/min/1.73 sqM) Est GFR (MDRD) Non-Af >60 (>60 ml/min/1.73 sqM) Glucose 208 H (74-99) mg/dL Calcium 9.0 (8.4-10.2) mg/dL Magnesium 1.8 (1.6-2.3) mg/dL Total Bilirubin 0.8 (0.2-1.3) mg/dL AST 24 (17-59) U/L ALT 39 (21-72) U/L Alkaline Phosphatase 127 H (38-126) U/L Total Creatine Kinase 96 (55-170) U/L CK-MB (CK-2) 1.7 (0.0-2.4) ng/mL CK-MB (CK-2) Rel Index 1.8 Troponin I <0.012 (0.000-0.034) ng/mL NT-Pro-B Natriuret Pep pg/mL Total Protein 6.7 (6.3-8.2) g/dL Albumin 3.7 (3.5-5.0) g/dL 12/20/16 12/20/16 Range/Units 03:20 03:20 WBC (3.8-10.6) k/uL RBC (4.30-5.90) m/uL Hgb (13.0-17.5) gm/dL Hct (39.0-53.0) % MCV (80.0-100.0) fL MCH (25.0-35.0) pg MCHC (31.0-37.0) g/dL RDW (11.5-15.5) % Plt Count (150-450) k/uL Neutrophils % % Lymphocytes % % Monocytes % % Eosinophils % % Basophils % % Neutrophils # (1.3-7.7) k/uL Lymphocytes # (1.0-4.8) k/uL Monocytes # (0-1.0) k/uL Eosinophils # (0-0.7) k/uL Basophils # (0-0.2) k/uL PT 11.1 (9.0-12.0) sec INR 1.1 (<1.2) APTT 22.8 (22.0-30.0) sec Sodium (137-145) mmol/L Potassium (3.5-5.1) mmol/L Chloride (98-107) mmol/L Carbon Dioxide (22-30) mmol/L Anion Gap mmol/L BUN (9-20) mg/dL Creatinine (0.66-1.25) mg/dL Est GFR (MDRD) Af Amer (>60 ml/min/1.73 sqM) Est GFR (MDRD) Non-Af (>60 ml/min/1.73 sqM) Glucose (74-99) mg/dL Calcium (8.4-10.2) mg/dL Magnesium (1.6-2.3) mg/dL Total Bilirubin (0.2-1.3) mg/dL AST (17-59) U/L ALT (21-72) U/L Alkaline Phosphatase (38-126) U/L Total Creatine Kinase (55-170) U/L CK-MB (CK-2) (0.0-2.4) ng/mL CK-MB (CK-2) Rel Index Troponin I (0.000-0.034) ng/mL NT-Pro-B Natriuret Pep 1380 pg/mL Total Protein (6.3-8.2) g/dL Albumin (3.5-5.0) g/dL - Radiology Data Radiology results: image reviewed (Chest x-ray shows cardiomegaly. Possible left lower lobe atelectasis/airspace disease) Critical Care Time Critical Care Time: Yes Total Critical Care Time: 31 Disposition Clinical Impression: Chest pain, Pneumonia, Sepsis Disposition: ADMITTED IP TO THIS HOSP Referrals: Domenico Pickard MD [Primary Care Provider] - 1-2 days Decision Time: 04:34
[2016-12-20 03:35] LABS: Basophils % (A) 0 %; CH 30.9; Eosinophils # (A) 0.4 k/uL (0-0.7); Eosinophils % (A) 3 %; HCT 45.9 % (39.0-53.0); HDW 3.09; HGB 14.7 gm/dL (13.0-17.5); Luc # (Auto) 0.12; Luc % (Auto) 1; Lymphocytes # (A) 1.9 k/uL (1.0-4.8); Lymphocytes % (A) 17 %; MCH 30.2 pg (25.0-35.0); MCV 94.3 fL (80.0-100.0); Mean Platelet Volume 7.8; Monocytes # (A) 0.6 k/uL (0-1.0); Monocytes % (A) 6 %; Neutrophils # (A) 7.7 k/uL (1.3-7.7); Neutrophils % (A) 72 %; RBC 4.87 m/uL (4.30-5.90); RDW 15.2 % (11.5-15.5); WBC 10.8 k/uL (3.8-10.6); WBC (Perox) 10.17
[2016-12-20 03:43] LABS: INR 1.1 (<1.2); Partial Thromboplastin Time 22.8 sec (22.0-30.0); Prothrombin Time 11.1 sec (9.0-12.0)
[2016-12-20 03:44] LABS: ALT 39 U/L (21-72); AST 24 U/L (17-59); Alkaline Phosphatase 127 U/L (38-126); Anion Gap 10 mmol/L; Blood Urea Nitrogen 20 mg/dL (9-20); Carbon Dioxide 29 mmol/L (22-30); Chloride 105 mmol/L (98-107); Glucose 208 mg/dL (74-99); Magnesium 1.8 mg/dL (1.6-2.3); Non-African American GFR(MDRD) >60 (>60 ml/min/1.73 sqM); Potassium 3.9 mmol/L (3.5-5.1); Sodium 144 mmol/L (137-145); Total Bilirubin 0.8 mg/dL (0.2-1.3); Total Protein 6.7 g/dL (6.3-8.2)
--- NOTE | 2016-12-20 03:47 | XR ---
EXAM: XR Chest, 2 Views CLINICAL HISTORY: Reason: Chest Pain TECHNIQUE: Frontal and lateral views of the chest. COMPARISON: Chest x-ray 10/02/16 FINDINGS: Lungs: Left lower lung atelectasis/airspace disease. Pleural space: Unremarkable. No pneumothorax. Heart: Cardiomegaly. Mediastinum: Unremarkable. Bones/joints: Unremarkable. Tubes, lines and devices: Pacemaker. Other findings: IMPRESSION: 1. Cardiomegaly. 2. Left lower lung atelectasis/airspace disease.
[2016-12-20 04:07] LABS: Creatine Kinase 96 U/L (55-170)
[2016-12-20 04:20] LABS: Creatine Kinase MB 1.7 ng/mL (0.0-2.4); Troponin I <0.012 ng/mL (0.000-0.034)
[2016-12-20] MEDS ORDERED: PNEUMONIA PROTOCOL UTILIZED 1 EACH MISC PO PRN (04:35)
[2016-12-20] MEDS ORDERED: AZITHROMYCIN 500 MG in SODIUM CHLORIDE 0.9% 250 ML IVPB STA (04:35)
[2016-12-20] MEDS ORDERED: NITROGLYCERIN SL TABS 0.4 MG TAB SUBLINGUAL PRN (04:35)
[2016-12-20 06:00] VITALS: BMI 45.1
[2016-12-20] MEDS ORDERED: NON-FORMULARY DRUG (Potassium [Potassium] 99 MG) PO SCH (07:00)
[2016-12-20 07:20] LABS: Glucose,Whole Blood 250 mg/dL (75-99)
[2016-12-20] MEDS: GABAPENTIN 300 MG CAP PO SCH ×2 (07:44→20:56)
[2016-12-20] MEDS: DULoxetine HCL 60 MG CAPSULE.DR PO SCH ×2 (07:44→20:56)
[2016-12-20] MEDS: ISOSORBIDE MONONITRATE ER 30 MG TAB.ER.24H PO SCH (07:45)
[2016-12-20] MEDS: TAMSULOSIN 0.4 MG CAP.ER.24H PO SCH (07:45)
[2016-12-20] MEDS: CALCIUM CARBONATE 500 MG CHEWABLE PO SCH (07:45)
[2016-12-20] MEDS: METOPROLOL TARTRATE 50 MG TAB PO SCH ×3 (07:46→21:57)
[2016-12-20] MEDS: FUROSEMIDE 40 MG TAB PO SCH ×2 (07:46→20:56)
[2016-12-20] MEDS: metFORMIN 500 MG TAB PO SCH ×2 (07:52→20:57)
[2016-12-20] MEDS ORDERED: NON-FORMULARY DRUG (Ubidecarenone [Co Q-10] 100 MG) PO SCH (09:00)
[2016-12-20] MEDS ORDERED: NON-FORMULARY DRUG (Magnesium [Magnesium] 400 MG) PO SCH (09:00)
[2016-12-20] MEDS: GABAPENTIN 400 MG CAP PO SCH ×2 (09:41→20:56)
[2016-12-20] MEDS: VITAMIN E (DL,TOCOPHERYL ACET) 400 UNIT CAP PO SCH (09:41)
[2016-12-20] MEDS: MAGNESIUM OXIDE 400 MG TAB PO SCH (09:41)
[2016-12-20 10:07] LABS: Creatine Kinase 81 U/L (55-170)
[2016-12-20 10:19] LABS: Creatine Kinase MB 1.5 ng/mL (0.0-2.4); Troponin I <0.012 ng/mL (0.000-0.034)
[2016-12-20] MEDS: APIXABAN 2.5 MG TABLET PO SCH ×2 (10:51→20:55)
[2016-12-20 11:35] LABS: Glucose,Whole Blood 169 mg/dL (75-99)
[2016-12-20 11:54] LABS: Hemoglobin A1C 8.2 % (4.2-6.1)
[2016-12-20] MEDS: B COMPLEX-VIT C-VIT E-ZINC 1 EACH TAB PO SCH (12:16)
[2016-12-20] MEDS: MULTIVITAMINS, THERA 1 EACH TAB PO SCH (12:16)
[2016-12-20] MEDS: NITROGLYCERIN OINT 1 INCH/GM PACKET TOPICAL SCH ×3 (12:17→23:30)
[2016-12-20] MEDS: CHOLECALCIFEROL 1,000 UNIT TAB PO SCH (12:17)
--- NOTE | 2016-12-20 12:47 | P.CRDCN ---
History of Present Illness History of present illness: Patient is doing well. He does not have any chest discomfort at this time cardiac enzymes are normal stress test earlier this year was normal examination is normal heart sounds are normal breath sounds are normal he will follow with Dr. Kunal Vargas as scheduled he already has an appointment within a week to 10 days please see full dictation by nurse practitioner/CP Past Medical History Past Medical History: Atrial Fibrillation, Coronary Artery Disease (CAD), CVA/ TIA, Diabetes Mellitus, GERD/Reflux, Hyperlipidemia, Hypertension, Memory Impairment, Musculoskeletal Disorder, Neurologic Disorder, Osteoarthritis (OA), Prostate Disorder, Sleep Apnea/CPAP/BIPAP, Syncope, Vascular Disorder Additional Past Medical History / Comment(s): cva x 3, multiple tia, multiple syncope episodes, gout, CELLULITIS FAHEEM LEGS, diabetic neuropathy, INSULIN PUMP FOR YEARS, 2 HEART STENTS, COUGH WITH HEMOPTYSIS History of Any Multi-Drug Resistant Organisms: MRSA Date of last positivie culture/infection: 08/06/11 MDRO Source:: Unknown Past Surgical History: Heart Catheterization With Stent, Hernia Repair, Orthopedic Surgery, Pacemaker Additional Past Surgical History / Comment(s): colonoscopy, 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 bilateral hand surg. for trigger finger & other hand surg FAHEEM cataract surg. 08-29-14 PACEMAKER INSERTION, UMBILICAL HERNIA REPAIR Past Anesthesia/Blood Transfusion Reactions: No Reported Reaction Date of Last Stent Placement:: 1998 Type of Cardiac Device: Permanent Pacemaker Device Placement Date:: ZapaTRONIC 09-08-14 Past Psychological History: No Psychological Hx Reported Smoking Status: Never smoker Past Alcohol Use History: None Reported Past Drug Use History: None Reported - Past Family History Mother Family Medical History: CVA/TIA, Dementia Additional Family Medical History / Comment(s): STILL ALIVE AT AGE 95 HAS BEGININGS OF DEMENTIA Father Family Medical History: Congestive Heart Failure (CHF) Additional Family Medical History / Comment(s): Brother(s) Family Medical History: Liver Disease Additional Family Medical History / Comment(s): etoh abuse- Medications and Allergies Home Medications Medication Instructions Recorded Confirmed Type Aspirin 81 mg PO DAILY 10/24/13 12/20/16 History DULoxetine HCL [Cymbalta] 60 mg PO BID 10/24/13 12/20/16 History Furosemide [Lasix] 40 mg PO BID 10/24/13 12/20/16 History Gabapentin [Neurontin] 600 mg PO BID 10/24/13 12/20/16 History Gabapentin [Neurontin] 800 mg PO BID 10/24/13 12/20/16 History Insulin Aspart [NovoLOG] See Protocol SQ CONTINUOUS 10/24/13 12/20/16 History Ubidecarenone [Co Q-10] 100 mg PO DAILY 05/14/14 12/20/16 History Vitamin E (Dl,Tocopheryl Acet) 400 unit PO DAILY 05/14/14 12/20/16 History [Vitamin E] Ascorbic Acid [Vitamin C] 1,000 mg PO HS 08/14/15 12/20/16 History Cholecalciferol [Vitamin D3] 2,000 unit PO DAILY 08/14/15 12/20/16 History Magnesium Oxide [Mag-Ox] 250 mg PO DAILY 08/14/15 12/20/16 History Multivit-Min/FA/Lycopen/Lutein 1 tab PO DAILY 08/14/15 12/20/16 History [Centrum Silver Tablet] [place]-3 Fatty Acids/Fish Oil [Fish 1 cap PO HS 08/14/15 12/20/16 History Oil 1,000 mg Softgel] Potassium 99 mg PO DAILY 08/14/15 12/20/16 History Vitamin B Complex 1 cap PO DAILY 08/14/15 12/20/16 History metFORMIN HCL ER [Glucophage Xr] 500 mg PO BID 08/14/15 12/20/16 History Biotin 5,000 mcg PO HS 10/11/15 12/20/16 History Calcium Carbonate [Calcium] 500 mg PO DAILY 10/11/15 12/20/16 History Metoprolol Tartrate [Lopressor] 50 mg PO TID 10/11/15 12/20/16 History Simvastatin [Zocor] 40 mg PO HS 10/11/15 12/20/16 History Lisinopril [Prinivil] 5 mg PO HS 12/18/15 12/20/16 History Albuterol Sulfate [Proair Hfa] 1 - 2 puff INHALATION RT-Q6H PRN 06/10/16 History Alfuzosin HCl [Alfuzosin HCl ER] 10 mg PO DAILY 06/10/16 12/20/16 History Isosorbide Mononitrate ER [Imdur] 30 mg PO DAILY 06/10/16 12/20/16 History Apixaban [Eliquis] 2.5 mg PO BID 12/20/16 12/20/16 History Omeprazole 40 mg PO BID 12/20/16 12/20/16 History Allergies Allergy/AdvReac Type Severity Reaction Status Date / Time adhesive tape Allergy Rash/Hives Verified 12/20/16 08:10 ciprofloxacin HCl Allergy Unknown Verified 12/20/16 08:10 [From Cipro] diphenhydramine HCl Allergy Rapid Verified 12/20/16 08:10 [From Benadryl] Heart Rate morphine Allergy BLOCKS Verified 12/20/16 08:10 BLADDER nitrofurantoin Allergy Unknown Verified 12/20/16 08:10 macrocrystalline [From Macrobid] Physical Exam Vitals: Vital Signs Temp Pulse Pulse Pulse Resp BP BP 12/20/16 11:59 59 L 18 101/50 12/20/16 08:00 99.2 F 59 L 19 119/58 12/20/16 04:54 97.4 F L 80 20 159/70 12/20/16 04:47 99.9 F H 60 18 125/56 12/20/16 04:35 12/20/16 03:12 98 F 89 24 145/67 Pulse Ox 12/20/16 11:59 96 12/20/16 08:00 94 L 12/20/16 04:54 100 12/20/16 04:47 97 12/20/16 04:35 97 12/20/16 03:12 94 L Intake and Output 12/19/16 12/20/16 12/20/16 22:59 06:59 14:59 Intake Total 50 Balance 50 Intake: Intake, IV Titration 50 Amount cefTRIAXone 1,000 mg In 50 Sodium Chloride 0.9% 50 ml @ 100 mls/hr IVPB Q24HR [facility] Rx#:[id number] Other: Weight 132.4 kg Results 12/20/16 03:20 12/20/16 03:20 Cardiac Enzymes 12/20/16 12/20/16 12/20/16 Range/Units 03:20 03:20 09:11 AST 24 (17-59) U/L CK-MB (CK-2) 1.7 1.5 (0.0-2.4) ng/mL Troponin I <0.012 <0.012 (0.000-0.034) ng/mL Coagulation 12/20/16 Range/Units 03:20 PT 11.1 (9.0-12.0) sec APTT 22.8 (22.0-30.0) sec CBC 12/20/16 Range/Units 03:20 WBC 10.8 H (3.8-10.6) k/uL RBC 4.87 (4.30-5.90) m/uL Hgb 14.7 (13.0-17.5) gm/dL Hct 45.9 (39.0-53.0) % Plt Count 250 (150-450) k/uL Comprehensive Metabolic Panel 12/20/16 Range/Units 03:20 Sodium 144 (137-145) mmol/L Potassium 3.9 (3.5-5.1) mmol/L Chloride 105 (98-107) mmol/L Carbon Dioxide 29 (22-30) mmol/L BUN 20 (9-20) mg/dL Creatinine 1.00 (0.66-1.25) mg/dL Glucose 208 H (74-99) mg/dL Calcium 9.0 (8.4-10.2) mg/dL AST 24 (17-59) U/L ALT 39 (21-72) U/L Alkaline Phosphatase 127 H (38-126) U/L Total Protein 6.7 (6.3-8.2) g/dL Albumin 3.7 (3.5-5.0) g/dL Current Medications Generic Name Dose Route Start Last Admin Trade Name Freq PRN Reason Stop Dose Admin Albuterol/Ipratropium 3 ml 12/20/16 04:35 Duoneb 0.5 Mg-3 Mg/3 Ml Soln INHALATION RT-Q4H PRN shortness of breath Apixaban 2.5 mg 12/20/16 09:45 12/20/16 10:51 Eliquis PO 2.5 mg BID OPHELIA Administration Ascorbic Acid 1,000 mg 12/20/16 21:00 Vitamin C PO HS [facility] Aspirin 325 mg 12/21/16 09:00 Aspirin PO DAILY [facility] Atorvastatin Calcium 20 mg 12/20/16 21:00 Lipitor PO HS OPHELIA Azithromycin 500 mg 12/21/16 09:00 Zithromax PO DAILY [facility] Calcium Carbonate/Glycine 500 mg 12/20/16 08:00 12/20/16 07:45 Tums PO 500 mg Q48H OPHELIA Administration Cholecalciferol 2,000 unit 12/20/16 12:00 12/20/16 12:17 Vitamin D3 PO 2,000 unit Q48H OPHELIA Administration Duloxetine HCl 60 mg 12/20/16 09:00 12/20/16 07:44 Cymbalta PO 60 mg BID OPHELIA Administration Furosemide 40 mg 12/20/16 09:00 12/20/16 07:46 Lasix PO 40 mg BID OPHELIA Administration Gabapentin 600 mg 12/20/16 09:00 12/20/16 07:44 Neurontin PO 600 mg BID OPHELIA Administration Gabapentin 800 mg 12/20/16 09:00 12/20/16 09:41 Neurontin PO 800 mg BID OPHELIA Administration Ceftriaxone Sodium 1,000 mg/ 50 mls @ 100 mls/hr 12/21/16 09:00 Sodium Chloride IVPB 12/24/16 09:01 Q24HR OPHELIA Isosorbide Mononitrate 30 mg 12/20/16 09:00 12/20/16 07:45 Imdur PO 30 mg DAILY [facility] Administration Lisinopril 5 mg 12/20/16 21:00 Zestril PO HS [facility] Magnesium Oxide 400 mg 12/20/16 09:00 12/20/16 09:41 Mag-Ox PO 400 mg DAILY [facility] Administration Metformin HCl 500 mg 12/20/16 09:00 12/20/16 07:52 Glucophage PO 500 mg BID [facility] Administration Metoprolol Tartrate 50 mg 12/20/16 09:00 12/20/16 07:46 Lopressor PO 50 mg TID [facility] Administration Miscellaneous Information 1 each 12/20/16 04:35 Pneumonia Protocol Utilized PO ONCE PRN Per Protocol Multivitamins 1 each 12/20/16 12:00 12/20/16 12:16 Theragran PO 1 each DAILY@1200 OPHELIA Administration Nitroglycerin 1 inch 12/20/16 12:00 12/20/16 12:17 Nitro-Bid Oint TOPICAL 1 inch Q6HR OPHELIA Administration Nitroglycerin 0.4 mg 12/20/16 04:35 Nitrostat SUBLINGUAL Q5M PRN Chest Pain Tamsulosin HCl 0.4 mg 12/20/16 09:00 12/20/16 07:45 Flomax PO 0.4 mg DAILY OPHELIA Administration Vitamin B Complex/Vit C/Vit E/Zinc 1 each 12/20/16 12:00 12/20/16 12:16 Z-Bec PO 1 each DAILY@1200 OPHELIA Administration Vitamin E 400 unit 12/20/16 09:00 12/20/16 09:41 Vitamin E PO 400 unit DAILY OPHELIA Administration Intake and Output 12/19/16 12/20/16 12/20/16 22:59 06:59 14:59 Intake Total 50 Balance 50 Intake: Intake, IV Titration 50 Amount cefTRIAXone 1,000 mg In 50 Sodium Chloride 0.9% 50 ml @ 100 mls/hr IVPB Q24HR [facility] Rx#:[id number] Other: Weight 132.4 kg 12/20/16 03:20 12/20/16 03:20
--- NOTE | 2016-12-20 12:59 | P.HPIM ---
History of Present Illness H&P Date: 12/20/16 Chief Complaint: Chest pain History of presenting complaint: This is a 71-year-old patient of Dr. Gonzalez. Chronic stable medical conditions include paroxysmal atrial fibrillation, diabetes with insulin pump and peripheral neuropathy, GERD, hyperlipidemia, hypertension, osteoarthritis, BPH, sleep apnea. Patient has a known history of colon artery disease with stent. Several years ago. Patient did have a negative stress test in May of this year.. Patient presents with left-sided chest pain that woke him up around 3: 00 this morning felt pressure-like. It was there for one hour off and on. When down his left arm. Patient was short of breath, perspiring, also vomited. Patient also describes some chills. Slight cough present. Denied any urinary symptoms. GEN.: Tired EYES: None HEENT: None NECK: None RESPIRATORY: As above CARDIOVASCULAR: As above GASTROINTESTINAL: None GENITOURINARY: None MUSCULOSKELETAL: Some pain in the joints] LYMPHATICS: None HEMATOLOGICAL: None PSYCHIATRY: None NEUROLOGICAL: Numbness and tingling in the feet Past medical history: Atrial flutter ablation, diabetes with neuropathy, GERD, hyperlipidemia, hypertension, obstructive is, BPH, sleep apnea, coronary artery disease with stent, CVA 3, multiple TIAs Past surgical history: Cardiac echo stent, hernia repair, pacemaker, amputation third toe left foot, rotator cuff surgery, bilateral hand surgery for trigger finger, 2015 had a pacemaker placed, a little hernia repair Home medications reviewed, and the computer ALLERGIES: Adhesive tape ciprofloxacin Benadryl morphine nitrofurantoin Social history: Does not smoke alcohol occasionally retired Family history: Congestive heart failure VITAL SIGNS: 99.9, 60, 18, 125/56, 97% on 2 L GENERAL: Well-built BMI 45.7 laying in bed tired appearing. EYES: Pupils equal. Conjunctiva normal. HEENT: External appearance of nose and ears normal, oral cavity grossly normal. NECK: JVD not raised; masses not palpable. HEART: First and second heart sounds are normal; no edema. LUNGS: Respiratory rate normal; decreased breath sound. ABDOMEN: Soft, distended, nontender, liver spleen not palpable, no masses palpable. LYMPHATICS: No lymph nodes palpable in the axilla and neck. PSYCH: Alert and oriented x3; mood and affect normal. NEUROLOGICAL: Cranial nerves grossly intact; no facial asymmetry, power and sensation grossly intact. 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 Cardiology was consulted. Serial cardiac enzymes and place. Care was discussed with the patient. Patient to continue on his insulin pump. Past Medical History Past Medical History: Atrial Fibrillation, Coronary Artery Disease (CAD), CVA/ TIA, Diabetes Mellitus, GERD/Reflux, Hyperlipidemia, Hypertension, Memory Impairment, Musculoskeletal Disorder, Neurologic Disorder, Osteoarthritis (OA), Prostate Disorder, Sleep Apnea/CPAP/BIPAP, Syncope, Vascular Disorder Additional Past Medical History / Comment(s): cva x 3, multiple tia, multiple syncope episodes, gout, CELLULITIS FAHEEM LEGS, diabetic neuropathy, INSULIN PUMP FOR YEARS, 2 HEART STENTS, COUGH WITH HEMOPTYSIS History of Any Multi-Drug Resistant Organisms: MRSA Date of last positivie culture/infection: 08/06/11 MDRO Source:: Unknown Past Surgical History: Heart Catheterization With Stent, Hernia Repair, Orthopedic Surgery, Pacemaker Additional Past Surgical History / Comment(s): colonoscopy, 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 bilateral hand surg. for trigger finger & other hand surg FAHEEM cataract surg. 08-29-14 PACEMAKER INSERTION, UMBILICAL HERNIA REPAIR Past Anesthesia/Blood Transfusion Reactions: No Reported Reaction Date of Last Stent Placement:: 1998 Type of Cardiac Device: Permanent Pacemaker Device Placement Date:: MEDTRONIC 09-08-14 Past Psychological History: No Psychological Hx Reported Smoking Status: Never smoker Past Alcohol Use History: None Reported Past Drug Use History: None Reported - Past Family History Mother Family Medical History: CVA/TIA, Dementia Additional Family Medical History / Comment(s): STILL ALIVE AT AGE 95 HAS BEGININGS OF DEMENTIA Father Family Medical History: Congestive Heart Failure (CHF) Additional Family Medical History / Comment(s): Brother(s) Family Medical History: Liver Disease Additional Family Medical History / Comment(s): etoh abuse- Medications and Allergies Home Medications Medication Instructions Recorded Confirmed Type Aspirin 81 mg PO DAILY 06/29/14 08/25/17 History DULoxetine HCL [Cymbalta] 60 mg PO BID 10/24/13 12/20/16 History Furosemide [Lasix] 40 mg PO BID 10/24/13 12/20/16 History Gabapentin [Neurontin] 600 mg PO BID 10/24/13 12/20/16 History Gabapentin [Neurontin] 800 mg PO BID 10/24/13 12/20/16 History Insulin Aspart [NovoLOG] See Protocol SQ CONTINUOUS 10/24/13 12/20/16 History Ubidecarenone [Co Q-10] 100 mg PO DAILY 05/14/14 12/20/16 History Vitamin E (Dl,Tocopheryl Acet) 400 unit PO DAILY 05/14/14 12/20/16 History [Vitamin E] Ascorbic Acid [Vitamin C] 1,000 mg PO HS 08/14/15 12/20/16 History Cholecalciferol [Vitamin D3] 2,000 unit PO DAILY 08/14/15 12/20/16 History Magnesium Oxide [Mag-Ox] 250 mg PO DAILY 08/14/15 12/20/16 History Multivit-Min/FA/Lycopen/Lutein 1 tab PO DAILY 08/14/15 12/20/16 History [Centrum Silver Tablet] [place]-3 Fatty Acids/Fish Oil [Fish 1 cap PO HS 08/14/15 12/20/16 History Oil 1,000 mg Softgel] Potassium 99 mg PO DAILY 08/14/15 12/20/16 History Vitamin B Complex 1 cap PO DAILY 08/14/15 12/20/16 History metFORMIN HCL ER [Glucophage Xr] 500 mg PO BID 08/14/15 12/20/16 History Biotin 5,000 mcg PO HS 10/11/15 12/20/16 History Calcium Carbonate [Calcium] 500 mg PO DAILY 10/11/15 12/20/16 History Metoprolol Tartrate [Lopressor] 50 mg PO TID 10/11/15 12/20/16 History Simvastatin [Zocor] 40 mg PO HS 10/11/15 12/20/16 History Lisinopril [Prinivil] 5 mg PO HS 12/18/15 12/20/16 History Albuterol Sulfate [Proair Hfa] 1 - 2 puff INHALATION RT-Q6H PRN 06/10/16 History Alfuzosin HCl [Alfuzosin HCl ER] 10 mg PO DAILY 06/10/16 12/20/16 History Isosorbide Mononitrate ER [Imdur] 30 mg PO DAILY 06/10/16 12/20/16 History Apixaban [Eliquis] 2.5 mg PO BID 12/20/16 12/20/16 History Omeprazole 40 mg PO BID 12/20/16 12/20/16 History Allergies Allergy/AdvReac Type Severity Reaction Status Date / Time adhesive tape Allergy Rash/Hives Verified 12/20/16 08:10 ciprofloxacin HCl Allergy Unknown Verified 12/20/16 08:10 [From Cipro] diphenhydramine HCl Allergy Rapid Verified 12/20/16 08:10 [From Benadryl] Heart Rate morphine Allergy BLOCKS Verified 12/20/16 08:10 BLADDER nitrofurantoin Allergy Unknown Verified 12/20/16 08:10 macrocrystalline [From Macrobid] Results CBC & Chem 7: 12/20/16 03:20 12/20/16 03:20
--- NOTE | 2016-12-20 13:42 | P.CRDCN ---
History of Present Illness Consult date: 12/20/16 Reason for Consult (text): chest pain Chief complaint: chest and abdominal pain History of present illness: This is a pleasant 71-year-old gentleman who follows with Dr. JONO Vargas in the office. He has a known history of atrial fibrillation, coronary artery disease with most recent cardiac catheterization in July 2015 that showed total occlusion of RCA, circumflex 40% stenosis and diagonal with 35% stenosis which was similar to catheterization from 2008, diabetes, GERD, hyperlipidemia, hypertension and permanent pacemaker. Presented to the emergency department with chest discomfort, increased with palpation and deep inspiration as well as some left upper quadrant discomfort and left hand pain that lasted seconds. His chart was reviewed patient had all Lexiscan Cardiolite in May of this year that showed no signs of reversible ischemia but an area of old infarct. Chest x-ray showed cardiomegaly with some left lower lobe atelectasis. EKG shows atrial flutter with ventricular paced rhythm. Troponins less than 0.012 and BNP 1380. On examination, patient is resting comfortably in bed. He continues to complain of some mild chest tenderness with palpation. He denies complaints of dizziness, lightheadedness, palpitations, or syncope. Does complain of some mild shortness of breath and difficulty taking deep breaths. Past Medical History Past Medical History: Atrial Fibrillation, Coronary Artery Disease (CAD), CVA/ TIA, Diabetes Mellitus, GERD/Reflux, Hyperlipidemia, Hypertension, Memory Impairment, Musculoskeletal Disorder, Neurologic Disorder, Osteoarthritis (OA), Prostate Disorder, Sleep Apnea/CPAP/BIPAP, Syncope, Vascular Disorder Additional Past Medical History / Comment(s): cva x 3, multiple tia, multiple syncope episodes, gout, CELLULITIS FAHEEM LEGS, diabetic neuropathy, INSULIN PUMP FOR YEARS, 2 HEART STENTS, COUGH WITH HEMOPTYSIS History of Any Multi-Drug Resistant Organisms: MRSA Date of last positivie culture/infection: 08/06/11 MDRO Source:: Unknown Past Surgical History: Heart Catheterization With Stent, Hernia Repair, Orthopedic Surgery, Pacemaker Additional Past Surgical History / Comment(s): colonoscopy, 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 bilateral hand surg. for trigger finger & other hand surg FAHEEM cataract surg. 08-29-14 PACEMAKER INSERTION, UMBILICAL HERNIA REPAIR Past Anesthesia/Blood Transfusion Reactions: No Reported Reaction Date of Last Stent Placement:: 1998 Type of Cardiac Device: Permanent Pacemaker Device Placement Date:: MEDTRONIC 09-08-14 Past Psychological History: No Psychological Hx Reported Smoking Status: Never smoker Past Alcohol Use History: None Reported Past Drug Use History: None Reported - Past Family History Mother Family Medical History: CVA/TIA, Dementia Additional Family Medical History / Comment(s): STILL ALIVE AT AGE 95 HAS BEGININGS OF DEMENTIA Father Family Medical History: Congestive Heart Failure (CHF) Additional Family Medical History / Comment(s): Brother(s) Family Medical History: Liver Disease Additional Family Medical History / Comment(s): etoh abuse- Medications and Allergies Home Medications Medication Instructions Recorded Confirmed Type Aspirin 81 mg PO DAILY 10/24/13 12/20/16 History DULoxetine HCL [Cymbalta] 60 mg PO BID 10/24/13 12/20/16 History Furosemide [Lasix] 40 mg PO BID 10/24/13 12/20/16 History Gabapentin [Neurontin] 600 mg PO BID 10/24/13 12/20/16 History Gabapentin [Neurontin] 800 mg PO BID 10/24/13 12/20/16 History Insulin Aspart [NovoLOG] See Protocol SQ CONTINUOUS 10/24/13 12/20/16 History Ubidecarenone [Co Q-10] 100 mg PO DAILY 05/14/14 12/20/16 History Vitamin E (Dl,Tocopheryl Acet) 400 unit PO DAILY 05/14/14 12/20/16 History [Vitamin E] Ascorbic Acid [Vitamin C] 1,000 mg PO HS 08/14/15 12/20/16 History Cholecalciferol [Vitamin D3] 2,000 unit PO DAILY 08/14/15 12/20/16 History Magnesium Oxide [Mag-Ox] 250 mg PO DAILY 08/14/15 12/20/16 History Multivit-Min/FA/Lycopen/Lutein 1 tab PO DAILY 08/14/15 12/20/16 History [Centrum Silver Tablet] [place]-3 Fatty Acids/Fish Oil [Fish 1 cap PO HS 08/14/15 12/20/16 History Oil 1,000 mg Softgel] Potassium 99 mg PO DAILY 08/14/15 12/20/16 History Vitamin B Complex 1 cap PO DAILY 08/14/15 12/20/16 History metFORMIN HCL ER [Glucophage Xr] 500 mg PO BID 08/14/15 12/20/16 History Biotin 5,000 mcg PO HS 10/11/15 12/20/16 History Calcium Carbonate [Calcium] 500 mg PO DAILY 10/11/15 12/20/16 History Metoprolol Tartrate [Lopressor] 50 mg PO TID 10/11/15 12/20/16 History Simvastatin [Zocor] 40 mg PO HS 10/11/15 12/20/16 History Lisinopril [Prinivil] 5 mg PO HS 12/18/15 12/20/16 History Albuterol Sulfate [Proair Hfa] 1 - 2 puff INHALATION RT-Q6H PRN 06/10/16 History Alfuzosin HCl [Alfuzosin HCl ER] 10 mg PO DAILY 06/10/16 12/20/16 History Isosorbide Mononitrate ER [Imdur] 30 mg PO DAILY 06/10/16 12/20/16 History Apixaban [Eliquis] 2.5 mg PO BID 12/20/16 12/20/16 History Omeprazole 40 mg PO BID 12/20/16 12/20/16 History Allergies Allergy/AdvReac Type Severity Reaction Status Date / Time adhesive tape Allergy Rash/Hives Verified 12/20/16 08:10 ciprofloxacin HCl Allergy Unknown Verified 12/20/16 08:10 [From Cipro] diphenhydramine HCl Allergy Rapid Verified 12/20/16 08:10 [From Benadryl] Heart Rate morphine Allergy BLOCKS Verified 12/20/16 08:10 BLADDER nitrofurantoin Allergy Unknown Verified 12/20/16 08:10 macrocrystalline [From Macrobid] Physical Exam Vitals: Vital Signs Temp Pulse Pulse Pulse Resp BP BP 12/20/16 11:59 59 L 18 101/50 12/20/16 08:00 99.2 F 59 L 19 119/58 12/20/16 04:54 97.4 F L 80 20 159/70 12/20/16 04:47 99.9 F H 60 18 125/56 12/20/16 04:35 12/20/16 03:12 98 F 89 24 145/67 Pulse Ox 12/20/16 11:59 96 12/20/16 08:00 94 L 12/20/16 04:54 100 12/20/16 04:47 97 12/20/16 04:35 97 12/20/16 03:12 94 L Intake and Output 12/19/16 12/20/16 12/20/16 22:59 06:59 14:59 Intake Total 50 Balance 50 Intake: Intake, IV Titration 50 Amount cefTRIAXone 1,000 mg In 50 Sodium Chloride 0.9% 50 ml @ 100 mls/hr IVPB Q24HR [facility] Rx#:[id number] Other: Weight 132.4 kg PHYSICAL EXAMINATION: HEENT: Head is atraumatic, normocephalic. Pupils equal, round. Neck is supple. There is no elevated jugular venous pressure. HEART EXAMINATION: Heart sounds regular, S1 and S2 normal. No murmur or gallop heard. CHEST EXAMINATION: Lungs reveal diminished air entry bilaterally with faint expiratory wheezing. No chest wall tenderness is noted on palpation or with deep breathing. ABDOMEN: Soft, obese, nontender. Bowel sounds are heard. No organomegaly noted. EXTREMITIES: Diminished peripheral pulses with evidence of trace peripheral edema and no calf tenderness noted. Right lower extremity discoloration noted. NEUROLOGIC patient is awake, alert and oriented x3 with some forgetfulness noted. . Results 12/20/16 03:20 12/20/16 03:20 Cardiac Enzymes 12/20/16 12/20/16 12/20/16 Range/Units 03:20 03:20 09:11 AST 24 (17-59) U/L CK-MB (CK-2) 1.7 1.5 (0.0-2.4) ng/mL Troponin I <0.012 <0.012 (0.000-0.034) ng/mL Coagulation 12/20/16 Range/Units 03:20 PT 11.1 (9.0-12.0) sec APTT 22.8 (22.0-30.0) sec CBC 12/20/16 Range/Units 03:20 WBC 10.8 H (3.8-10.6) k/uL RBC 4.87 (4.30-5.90) m/uL Hgb 14.7 (13.0-17.5) gm/dL Hct 45.9 (39.0-53.0) % Plt Count 250 (150-450) k/uL Comprehensive Metabolic Panel 12/20/16 Range/Units 03:20 Sodium 144 (137-145) mmol/L Potassium 3.9 (3.5-5.1) mmol/L Chloride 105 (98-107) mmol/L Carbon Dioxide 29 (22-30) mmol/L BUN 20 (9-20) mg/dL Creatinine 1.00 (0.66-1.25) mg/dL Glucose 208 H (74-99) mg/dL Calcium 9.0 (8.4-10.2) mg/dL AST 24 (17-59) U/L ALT 39 (21-72) U/L Alkaline Phosphatase 127 H (38-126) U/L Total Protein 6.7 (6.3-8.2) g/dL Albumin 3.7 (3.5-5.0) g/dL Current Medications Generic Name Dose Route Start Last Admin Trade Name Freq PRN Reason Stop Dose Admin Albuterol/Ipratropium 3 ml 12/20/16 04:35 Duoneb 0.5 Mg-3 Mg/3 Ml Soln INHALATION RT-Q4H PRN shortness of breath Apixaban 2.5 mg 12/20/16 09:45 12/20/16 10:51 Eliquis PO 2.5 mg BID OPHELIA Administration Ascorbic Acid 1,000 mg 12/20/16 21:00 Vitamin C PO HS [facility] Aspirin 325 mg 12/21/16 09:00 Aspirin PO DAILY [facility] Atorvastatin Calcium 20 mg 12/20/16 21:00 Lipitor PO HS OPHELIA Azithromycin 500 mg 12/21/16 09:00 Zithromax PO DAILY [facility] Calcium Carbonate/Glycine 500 mg 12/20/16 08:00 12/20/16 07:45 Tums PO 500 mg Q48H OPHELIA Administration Cholecalciferol 2,000 unit 12/20/16 12:00 12/20/16 12:17 Vitamin D3 PO 2,000 unit Q48H OPHEL[facility] Administration Duloxetine HCl 60 mg 12/20/16 09:00 12/20/16 07:44 Cymbalta PO 60 mg BID OPHELIA Administration Furosemide 40 mg 12/20/16 09:00 12/20/16 07:46 Lasix PO 40 mg BID OPHELIA Administration Gabapentin 600 mg 12/20/16 09:00 12/20/16 07:44 Neurontin PO 600 mg BID OPHELIA Administration Gabapentin 800 mg 12/20/16 09:00 12/20/16 09:41 Neurontin PO 800 mg BID OPHEL[facility] Administration Ceftriaxone Sodium 1,000 mg/ 50 mls @ 100 mls/hr 12/21/16 09:00 Sodium Chloride IVPB 12/24/16 09:01 Q24HR [facility] Isosorbide Mononitrate 30 mg 12/20/16 09:00 12/20/16 07:45 Imdur PO 30 mg DAILY OPHELIA Administration Lisinopril 5 mg 12/20/16 21:00 Zestril PO HS [facility] Magnesium Oxide 400 mg 12/20/16 09:00 12/20/16 09:41 Mag-Ox PO 400 mg DAILY [facility] Administration Metformin HCl 500 mg 12/20/16 09:00 12/20/16 07:52 Glucophage PO 500 mg BID [facility] Administration Metoprolol Tartrate 50 mg 12/20/16 09:00 12/20/16 07:46 Lopressor PO 50 mg TID [facility] Administration Miscellaneous Information 1 each 12/20/16 04:35 Pneumonia Protocol Utilized PO ONCE PRN Per Protocol Multivitamins 1 each 12/20/16 12:00 12/20/16 12:16 Theragran PO 1 each DAILY@1200 [facility] Administration Nitroglycerin 1 inch 12/20/16 12:00 12/20/16 12:17 Nitro-Bid Oint TOPICAL 1 inch Q6HR [facility] Administration Nitroglycerin 0.4 mg 12/20/16 04:35 Nitrostat SUBLINGUAL Q5M PRN Chest Pain Tamsulosin HCl 0.4 mg 12/20/16 09:00 12/20/16 07:45 Flomax PO 0.4 mg DAILY [facility] Administration Vitamin B Complex/Vit C/Vit E/Zinc 1 each 12/20/16 12:00 12/20/16 12:16 Z-Bec PO 1 each DAILY@1200 [facility] Administration Vitamin E 400 unit 12/20/16 09:00 12/20/16 09:41 Vitamin E PO 400 unit DAILY [facility] Administration Intake and Output 12/19/16 12/20/16 12/20/16 22:59 06:59 14:59 Intake Total 50 Balance 50 Intake: Intake, IV Titration 50 Amount cefTRIAXone 1,000 mg In 50 Sodium Chloride 0.9% 50 ml @ 100 mls/hr IVPB Q24HR [facility] Rx#:[id number] Other: Weight 132.4 kg 12/20/16 03:20 12/20/16 03:20 EKG Interpretations (text) Atrial flutter, ventricular paced rhythm Assessment and Plan Plan: Assessment and plan #1 atypical chest pain, troponins negative, normal Lexiscan Cardiolite earlier this year #2 chronic atrial fibrillation/flutter, anticoagulated #3 coronary artery disease with known total occlusion of the RCA 4 hyperlipidemia #5 hypertension #6 diabetes #7 memory impairment From Cardiology's perspective, we will obtain a 2-D echo with Doppler. Patient will follow-up with Dr. JONO Vargas in the office in one to 2 weeks. We will follow the patient on an as-needed basis. Please do not hesitate to contact us with questions. SENIOR MERCHANDISER note has been reviewed, I agree with a documented findings and plan of care. Patient was seen and examined.
[2016-12-20 15:38] LABS: Creatine Kinase 79 U/L (55-170)
[2016-12-20 15:52] LABS: Creatine Kinase MB 1.3 ng/mL (0.0-2.4); Troponin I <0.012 ng/mL (0.000-0.034)
[2016-12-20 16:45] LABS: Glucose,Whole Blood 301 mg/dL (75-99)
--- NOTE | 2016-12-20 17:22 | ECHOF ---
Referral Reason:chest pain MEASUREMENTS -------- HEIGHT: 170.2 cm WEIGHT: 132.0 kg BP: 119/58 RVIDd: 4.1 cm (< 3.3) IVSd: 1.2 cm (0.6 - 1.1) LVIDd: 4.3 cm (3.9 - 5.3) LVPWd: 1.2 cm (0.6 - 1.1) IVSs: 1.8 cm LVIDs: 2.9 cm LVPWs: 1.4 cm LAESV Index (A-L): 32.40 ml/m Ao Diam: 3.1 cm (2.0 - 3.7) AV Cusp: 0.8 cm (1.5 - 2.6) LA Diam: 4.4 cm (2.7 - 3.8) AV maxP.50 mmHg AV meanP.46 mmHg RAP: 5.00 mmHg RVSP: 11.68 mmHg FINDINGS -------- Ventricularly paced rhythm. This was a technically difficult study with suboptimal views. There is mild concentric left ventricular hypertrophy. Overall left ventricular systolic function is normal with, an EF between 60 - 65 %. The right ventricle is normal in size and function. LA is midly dilated 29-33ml/m2. The right atrium is normal in size. 1.5mg of Definity was utilized for enhancement of images Aortic valve is trileaflet and is moderately thickened. There is no evidence of aortic regurgitation. Moderate aortic stenosis with peak/mean pressure gradient of 32.50mmHg / 21.46mmHg, the aortic valve area by continuity equation is 1.3cm. The mitral valve leaflets are mildly thickened. There is trace to mild mitral regurgitation. Trace tricuspid regurgitation present. There is no evidence of pulmonary hypertension. The right ventricular systolic pressure, as measured by Doppler, is 11.68mmHg. The pulmonic valve was not well visualized. The aortic root size is normal. The inferior vena cava is mildly dilated. The pericardium is normal. There is no pericardial effusion. CONCLUSIONS -------- 1. Ventricularly paced rhythm. 2. There is trace to mild mitral regurgitation. 3. Trace tricuspid regurgitation present. 4. There is no evidence of pulmonary hypertension. 5. The right ventricular systolic pressure, as measured by Doppler, is 11.68mmHg. 6. The pulmonic valve was not well visualized. 7. The aortic root size is normal. 8. The inferior vena cava is mildly dilated. 9. There is no pericardial effusion. 10. This was a technically difficult study with suboptimal views. 11. There is mild concentric left ventricular hypertrophy. 12. Overall left ventricular systolic function is normal with, an EF between 60 - 65 %. 13. LA is midly dilated 29-33ml/m2. 14. 1.5mg of Definity was utilized for enhancement of images 15. Aortic valve is trileaflet and is moderately thickened. 16. Moderate aortic stenosis with peak/mean pressure gradient of 32.50mmHg / 21.46mmHg, the aortic valve area by continuity equation is 1.3cm. 17. The mitral valve leaflets are mildly thickened. [employer] OPERATOR: Beka Polo RDCS
[2016-12-20] MEDS: IPRATROPIUM-ALBUTEROL 3 ML NEB INHALATION PRN (19:50)
[2016-12-20] MEDS: ASCORBIC ACID 500 MG TAB PO SCH (20:55)
[2016-12-20] MEDS: LISINOPRIL 5 MG TAB PO SCH (20:57)
[2016-12-20] MEDS ORDERED: NON-FORMULARY DRUG (Biotin [Biotin] 5,000 MCG) PO SCH (21:00)
[2016-12-20] MEDS ORDERED: NON-FORMULARY DRUG (Omega-3 Fatty Acids/Fish Oil [Fish Oil 1,000 Mg Softgel] 1 CAP) PO SCH (21:00)
[2016-12-20 21:24] LABS: Glucose,Whole Blood 273 mg/dL (75-99)
[2016-12-20] MEDS: ATORVASTATIN 20 MG TAB PO SCH (21:57)
[2016-12-21 00:41] LABS: Cholesterol 136 mg/dL (<200); HDL Cholesterol 43 mg/dL (40-60)
[2016-12-21] MEDS ORDERED: INSPUCOR MISCELLANE PRN (06:15)
[2016-12-21] MEDS ORDERED: INSULIN LISPRO (humaLOG) 300 UNIT/3 ML VIAL SQ PRN (06:15)
[2016-12-21] MEDS ORDERED: INSULIN PUMP BASAL RATES 1 EACH MISC MISCELLANE PRN (06:15)
[2016-12-21] MEDS: NITROGLYCERIN OINT 1 INCH/GM PACKET TOPICAL SCH ×3 (06:30→18:13)
[2016-12-21 06:31] LABS: Glucose,Whole Blood 182 mg/dL (75-99)
--- NOTE | 2016-12-21 07:30 | XR ---
EXAMINATION TYPE: XR chest 2V DATE OF EXAM: 12/21/2016 COMPARISON: NONE TECHNIQUE: PA and lateral views submitted. HISTORY: Pneumonia FINDINGS: Cardiac device noted. No sizable pneumothorax. Mild central interstitial prominence and cardiomegaly. No pleural effusion. No focal consolidation. Arthropathy of the shoulders. Hypertrophic and degenera tive change spine. IMPRESSION: 1. Perihilar interstitial changes correlate for mild pneumonitis or venous congestion.
[2016-12-21] MEDS: IPRATROPIUM-ALBUTEROL 3 ML NEB INHALATION PRN ×2 (08:10→20:19)
[2016-12-21] MEDS: AZITHROMYCIN 500 MG TAB PO SCH (09:08)
[2016-12-21] MEDS: ASPIRIN 325 MG TAB PO SCH (09:08)
[2016-12-21] MEDS: APIXABAN 2.5 MG TABLET PO SCH ×2 (09:08→20:50)
[2016-12-21] MEDS: ISOSORBIDE MONONITRATE ER 30 MG TAB.ER.24H PO SCH (09:09)
[2016-12-21] MEDS: GABAPENTIN 300 MG CAP PO SCH ×2 (09:09→20:50)
[2016-12-21] MEDS: MAGNESIUM OXIDE 400 MG TAB PO SCH (09:09)
[2016-12-21] MEDS: GABAPENTIN 400 MG CAP PO SCH ×2 (09:09→20:51)
[2016-12-21] MEDS: FUROSEMIDE 40 MG TAB PO SCH ×2 (09:09→20:50)
[2016-12-21] MEDS: DULoxetine HCL 60 MG CAPSULE.DR PO SCH ×2 (09:09→20:50)
[2016-12-21] MEDS: METOPROLOL TARTRATE 50 MG TAB PO SCH ×3 (09:10→22:05)
[2016-12-21] MEDS: metFORMIN 500 MG TAB PO SCH ×2 (09:10→20:51)
[2016-12-21] MEDS: VITAMIN E (DL,TOCOPHERYL ACET) 400 UNIT CAP PO SCH (09:10)
[2016-12-21] MEDS: TAMSULOSIN 0.4 MG CAP.ER.24H PO SCH (09:10)
[2016-12-21 10:04] LABS: Basophils # (A) 0.1 k/uL (0-0.2); Basophils % (A) 1 %; CH 30.7; CHCM 32.8; Eosinophils # (A) 0.9 k/uL (0-0.7); Eosinophils % (A) 8 %; HDW 3.03; HGB 12.3 gm/dL (13.0-17.5); Luc # (Auto) 0.27; Luc % (Auto) 3; Lymphocytes # (A) 2.7 k/uL (1.0-4.8); Lymphocytes % (A) 24 %; MCH 30.5 pg (25.0-35.0); MCHC 32.4 g/dL (31.0-37.0); MCV 94.1 fL (80.0-100.0); Mean Platelet Volume 7.9; Monocytes # (A) 0.6 k/uL (0-1.0); Monocytes % (A) 6 %; Neutrophils # (A) 6.4 k/uL (1.3-7.7); Neutrophils % (A) 59 %; RBC 4.03 m/uL (4.30-5.90); RDW 15.3 % (11.5-15.5); WBC 10.9 k/uL (3.8-10.6); WBC (Perox) 11.22
[2016-12-21 10:21] LABS: Anion Gap 8 mmol/L; Blood Urea Nitrogen 20 mg/dL (9-20); Calcium 8.8 mg/dL (8.4-10.2); Carbon Dioxide 27 mmol/L (22-30); Chloride 105 mmol/L (98-107); Glucose 239 mg/dL (74-99); Non-African American GFR(MDRD) >60 (>60 ml/min/1.73 sqM); Potassium 3.8 mmol/L (3.5-5.1); Sodium 140 mmol/L (137-145)
--- NOTE | 2016-12-21 11:56 | P.PN ---
<Reina Rodriguez - Last Filed: 12/21/16 11:43> Progress Note - Text DATE OF SERVICE: 12/21/2016 PRESENTING COMPLAINT: Chest pain INTERVAL HISTORY: 71-year-old male presented with chest pain. Had a negative stress in May of this year. The pain awoke patient from sleep and lasted for about an hour when down his left arm, associated shortness of breath and perspiration and vomiting. 12/21/2016: Patient seen in follow-up, no further episodes of chest pain. Cardiology Will obtain a 2-D echo with Doppler, will remain on consult as needed., Breathing is a bit better, coarse cough noted no sputum production. Ambulatory in the room, tolerating his diet, states appetite is good. Last BM prior to admission. REVIEW OF SYSTEMS: Done for constitutional ,cardiovascular, GI, pulmonary with relevant findings as above. CURRENT MEDICATIONS Eliquis, aspirin, Lipitor, Zithromax, ceftriaxone, insulin, Glucophage Lopressor. PHYSICAL EXAM VITAL SIGNS: Temperature 98.1, pulse 55, blood pressure 113/54, respiratory rate 20, oxygen saturation 97% on 2 L. GENERAL APPEARANCE: Lying in bed, not in distress. EYES: Pupils equal. Conjunctiva normal. NECK: JVD not raised. Mass not palpable. RESPIRATORY: Respiratory effort normal. Lungs clear to auscultation. CARDIOVASCULAR: First and second sounds normal. No edema. ABDOMEN: Soft. Liver and spleen not palpable. No tenderness. No mass palpable. PSYCHIATRY: Alert and oriented x3. Mood and affect normal. NEUROLOGICAL: Cranial nerves grossly intact. No facial asymmetry. Power and sensation grossly intact INVESTIGATIONS: White blood cell count 10.9, hemoglobin 12.3, BMP unremarkable. Accu-Cheks noted Chest x-ray: Mild pneumonitis or venous congestion. ASSESSMENT: -Permanent atrial flutter the patient with apacemaker -Diabetes mellitus type 2 chronically on insulin pump and has peripheral neuropathy -GERD -Hyperlipidemia -Essential hypertension -Primary osteoarthritis in multiple joints -BPH -Sleep apnea -Morbid obesity BMI 45.7 PLAN: Continue azithromycin, cardiology to be on consult on an as-needed basis, patient follow-up with Dr. JONO harrell in a week. Plan of care discussed with the patient the bedside he is in agreement. We'll continue to follow closely. SCAFFOLDER statement: Patient was seen and examined by nurse practitioner Reina Rodriguez and all elements of the case discussed with attending Dr. Scherer <Adriel Scherer - Last Filed: 12/21/16 15:40> Progress Note - Text Attending note. Date of service-12/21/2016 This patient was seen and examined by me . Discussed the patient with my nurse practitioner Ms. Rodriguez. . Tired. Cough and sputum. Appetite still down a bit. Has been out of bed. On examination: Lungs-decreased breath sounds, cardiovascular heart sounds are regular Investigations: White count 10.9 Assessment and plan: Right middle lobe pneumonia suspected gram-negative organism-slowly improving Continued IV antibiotics. Care was discussed with the patient. Encouraged to be out of bed
[2016-12-21 12:04] LABS: Glucose,Whole Blood 274 mg/dL (75-99)
[2016-12-21] MEDS ORDERED: INSULIN LISPRO (humaLOG) 300 UNIT/3 ML VIAL SQ ONE (12:10)
[2016-12-21] MEDS: B COMPLEX-VIT C-VIT E-ZINC 1 EACH TAB PO SCH (12:37)
[2016-12-21] MEDS: MULTIVITAMINS, THERA 1 EACH TAB PO SCH (12:37)
[2016-12-21 16:34] LABS: Glucose,Whole Blood 312 mg/dL (75-99)
[2016-12-21] MEDS: ATORVASTATIN 20 MG TAB PO SCH (20:50)
[2016-12-21] MEDS: ASCORBIC ACID 500 MG TAB PO SCH (20:50)
[2016-12-21] MEDS: LISINOPRIL 5 MG TAB PO SCH (20:51)
[2016-12-21 21:24] LABS: Glucose,Whole Blood 260 mg/dL (75-99)
[2016-12-22] MEDS: NITROGLYCERIN OINT 1 INCH/GM PACKET TOPICAL SCH (00:37)
[2016-12-22 05:36] VITALS: RESP 18
[2016-12-22 06:11] LABS: Glucose,Whole Blood 64 mg/dL (75-99)
[2016-12-22 06:27] LABS: Glucose,Whole Blood 71 mg/dL (75-99)
[2016-12-22 06:46] LABS: Glucose,Whole Blood 85 mg/dL (75-99)
[2016-12-22 06:50] LABS: Basophils # (A) 0.1 k/uL (0-0.2); Basophils % (A) 1 %; CH 30.7; Eosinophils # (A) 0.9 k/uL (0-0.7); Eosinophils % (A) 8 %; HCT 38.2 % (39.0-53.0); HDW 3.08; HGB 12.3 gm/dL (13.0-17.5); Luc # (Auto) 0.36; Luc % (Auto) 3; Lymphocytes # (A) 2.9 k/uL (1.0-4.8); Lymphocytes % (A) 26 %; MCH 30.1 pg (25.0-35.0); MCHC 32.1 g/dL (31.0-37.0); MCV 93.8 fL (80.0-100.0); Mean Platelet Volume 7.8; Monocytes # (A) 0.7 k/uL (0-1.0); Monocytes % (A) 6 %; Neutrophils # (A) 6.5 k/uL (1.3-7.7); Neutrophils % (A) 57 %; RBC 4.07 m/uL (4.30-5.90); WBC 11.3 k/uL (3.8-10.6)
[2016-12-22 06:59] LABS: Anion Gap 9 mmol/L; Blood Urea Nitrogen 21 mg/dL (9-20); Calcium 9.3 mg/dL (8.4-10.2); Carbon Dioxide 28 mmol/L (22-30); Chloride 105 mmol/L (98-107); Glucose 53 mg/dL (74-99); Non-African American GFR(MDRD) >60 (>60 ml/min/1.73 sqM); Potassium 3.9 mmol/L (3.5-5.1); Sodium 142 mmol/L (137-145)
[2016-12-22] MEDS: ISOSORBIDE MONONITRATE ER 30 MG TAB.ER.24H PO SCH (08:56)
[2016-12-22] MEDS: TAMSULOSIN 0.4 MG CAP.ER.24H PO SCH (08:56)
[2016-12-22] MEDS: DULoxetine HCL 60 MG CAPSULE.DR PO SCH (08:56)
[2016-12-22] MEDS: GABAPENTIN 300 MG CAP PO SCH (08:56)
[2016-12-22] MEDS: metFORMIN 500 MG TAB PO SCH (08:57)
[2016-12-22] MEDS: METOPROLOL TARTRATE 50 MG TAB PO SCH (08:57)
[2016-12-22] MEDS: MAGNESIUM OXIDE 400 MG TAB PO SCH (08:57)
[2016-12-22] MEDS: AZITHROMYCIN 500 MG TAB PO SCH (08:57)
[2016-12-22] MEDS: APIXABAN 2.5 MG TABLET PO SCH (08:57)
[2016-12-22] MEDS: GABAPENTIN 400 MG CAP PO SCH (08:57)
[2016-12-22] MEDS: CALCIUM CARBONATE 500 MG CHEWABLE PO SCH (08:57)
[2016-12-22] MEDS: FUROSEMIDE 40 MG TAB PO SCH (08:58)
[2016-12-22] MEDS: ASPIRIN 325 MG TAB PO SCH (08:58)
[2016-12-22] MEDS: VITAMIN E (DL,TOCOPHERYL ACET) 400 UNIT CAP PO SCH (08:58)
[2016-12-22 09:08] VITALS: TEMP 96.5
[2016-12-22 11:43] LABS: Glucose,Whole Blood 166 mg/dL (75-99)
[2016-12-22] MEDS: B COMPLEX-VIT C-VIT E-ZINC 1 EACH TAB PO SCH (12:30)
[2016-12-22] MEDS: CHOLECALCIFEROL 1,000 UNIT TAB PO SCH (12:30)
[2016-12-22] MEDS: MULTIVITAMINS, THERA 1 EACH TAB PO SCH (12:31)
[2016-12-22 15:09] VITALS: BP 136/63; PULSE 56
--- NOTE | 2016-12-22 20:11 | P.DS ---
<Reina Rodriguez - Last Filed: 12/22/16 19:53> Providers Date of admission: 12/20/16 04:34 Expected date of discharge: 12/22/16 Attending physician: Adriel Scherer Consults: 12/20/16 04:35 Consult Physician Urgent Consulting Provider: Chao Hitchcock Consult Reason/Comments: cp Do you want consulting provider notified?: Yes Primary care physician: [facility] Course: FINAL DIAGNOSES: -Right middle lobe pneumonia suspect gram-negative organism, -Permanent atrial flutter the patient with a pacemaker -Diabetes mellitus type 2 chronically on insulin pump and has peripheral neuropathy -GERD -Hyperlipidemia -Essential hypertension -Primary osteoarthritis in multiple joints -BPH -Sleep apnea -Morbid obesity BMI 45.7 HOSPTIAL COURSE: 71-year-old male who presented with chest pain. 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 2-D echo with Doppler was performed. Chest x-ray revealed cardiomegaly with some left lower lobe atelectasis. Antibiotics initiated, breathing treatments provided. Breathing improved, cough less productive, afebrile, white count improving, patient stable for discharge and has such wishes to go home. PHYSICAL EXAM: CARDIOVASCULAR: Irregular rhythm, generalized edema. RESPIRATORY: Respiratory effort normal, lungs diminished, nonproductive cough Patient was seen and examined by nurse practitioner Reina Rodriguez in all elements of the case discussed with attending Dr. Scherer DISPOSITION: Home to the care of his family Patient Condition at Discharge: Stable Plan - Discharge Summary New Discharge Prescriptions: New Cefuroxime Axetil [Ceftin] 500 mg PO BID #10 tab Nitroglycerin Sl Tabs [Nitrostat] 0.4 mg SUBLINGUAL Q5M PRN #20 tab PRN Reason: Chest Pain Continue Insulin Aspart [NovoLOG] See Protocol SQ CONTINUOUS Gabapentin [Neurontin] 600 mg PO BID Gabapentin [Neurontin] 800 mg PO BID DULoxetine HCL [Cymbalta] 60 mg PO BID Aspirin 81 mg PO DAILY Furosemide [Lasix] 40 mg PO BID Vitamin E (Dl,Tocopheryl Acet) [Vitamin E] 400 unit PO DAILY Ubidecarenone [Co Q-10] 100 mg PO DAILY Potassium 99 mg PO DAILY [place]-3 Fatty Acids/Fish Oil [Fish Oil 1,000 mg Softgel] 1 cap PO HS Magnesium Oxide [Mag-Ox] 250 mg PO DAILY Cholecalciferol [Vitamin D3] 2,000 unit PO DAILY Multivit-Min/FA/Lycopen/Lutein [Centrum Silver Tablet] 1 tab PO DAILY Ascorbic Acid [Vitamin C] 1,000 mg PO HS Vitamin B Complex 1 cap PO DAILY metFORMIN HCL ER [Glucophage Xr] 500 mg PO BID Simvastatin [Zocor] 40 mg PO HS Biotin 5,000 mcg PO HS Calcium Carbonate [Calcium] 500 mg PO DAILY Metoprolol Tartrate [Lopressor] 50 mg PO TID Lisinopril [Prinivil] 5 mg PO HS Alfuzosin HCl [Alfuzosin HCl ER] 10 mg PO DAILY Isosorbide Mononitrate ER [Imdur] 30 mg PO DAILY Apixaban [Eliquis] 2.5 mg PO BID Omeprazole 40 mg PO BID Albuterol Sulfate [Proair Hfa] 1 - 2 puff INHALATION RT-Q6H PRN #1 PRN Reason: Shortness Of Breath Discharge Medication List Aspirin 81 mg PO DAILY 10/24/13 [History] DULoxetine HCL [Cymbalta] 60 mg PO BID 10/24/13 [History] Furosemide [Lasix] 40 mg PO BID 10/24/13 [History] Gabapentin [Neurontin] 600 mg PO BID 10/24/13 [History] Gabapentin [Neurontin] 800 mg PO BID 10/24/13 [History] Insulin Aspart [NovoLOG] See Protocol SQ CONTINUOUS 10/24/13 [History] Ubidecarenone [Co Q-10] 100 mg PO DAILY 05/14/14 [History] Vitamin E (Dl,Tocopheryl Acet) [Vitamin E] 400 unit PO DAILY 05/14/14 [History] Ascorbic Acid [Vitamin C] 1,000 mg PO HS 08/14/15 [History] Cholecalciferol [Vitamin D3] 2,000 unit PO DAILY 08/14/15 [History] Magnesium Oxide [Mag-Ox] 250 mg PO DAILY 08/14/15 [History] Multivit-Min/FA/Lycopen/Lutein [Centrum Silver Tablet] 1 tab PO DAILY 08/14/15 [ History] [place]-3 Fatty Acids/Fish Oil [Fish Oil 1,000 mg Softgel] 1 cap PO HS 08/14/15 [ History] Potassium 99 mg PO DAILY 08/14/15 [History] Vitamin B Complex 1 cap PO DAILY 08/14/15 [History] metFORMIN HCL ER [Glucophage Xr] 500 mg PO BID 08/14/15 [History] Biotin 5,000 mcg PO HS 10/11/15 [History] Calcium Carbonate [Calcium] 500 mg PO DAILY 10/11/15 [History] Metoprolol Tartrate [Lopressor] 50 mg PO TID 10/11/15 [History] Simvastatin [Zocor] 40 mg PO HS 10/11/15 [History] Lisinopril [Prinivil] 5 mg PO HS 12/18/15 [History] Alfuzosin HCl [Alfuzosin HCl ER] 10 mg PO DAILY 06/10/16 [History] Isosorbide Mononitrate ER [Imdur] 30 mg PO DAILY 06/10/16 [History] Apixaban [Eliquis] 2.5 mg PO BID 12/20/16 [History] Omeprazole 40 mg PO BID 12/20/16 [History] Albuterol Sulfate [Proair Hfa] 1 - 2 puff INHALATION RT-Q6H PRN #1 12/22/16 [Rx ] Cefuroxime Axetil [Ceftin] 500 mg PO BID #10 tab 12/22/16 [Rx] Nitroglycerin Sl Tabs [Nitrostat] 0.4 mg SUBLINGUAL Q5M PRN #20 tab 12/22/16 [Rx ] Follow up Appointment(s)/Referral(s): Gary Vargas MD [STAFF PHYSICIAN] - 1 Week Domenico Pickard MD [Primary Care Provider] - 3 Days Ambulatory/Diagnostic Orders: Complete Blood Count w/diff [LAB.AMB] Time Frame: 3 Days, Location: Determined By Patient Patient Instructions/Handouts: Pneumonitis (DC), Cellulitis (DC) Discharge Disposition: HOME SELF-CARE <Adriel Scherer - Last Filed: 12/22/16 22:11> Hospital Course: Attending note. Date of service-12/22/2016 This patient was seen and examined by me . Discussed the patient with my nurse practitioner Ms. Rodriguez. Feeling much better. Cough improved. Minimal sputum.. On examination: Lungs-decreased breath sounds, cardiovascular irritable heart sounds. Investigations: Assessment and plan: Pneumonia improved. Patient manages on insulin pump. Keen to go home. Discharge discussed with the patient Discharge planning more than 35 minutes
== END 2016-12-22 15:11 | disposition home or self-care (01) | DRG 178 ==
LOC: EC 02:58 → 6SEL 04:34
PROVIDERS: ADMIT Hospitalist; ATTEND Hospitalist
DX: J15.6 Pneumonia due to other Gram-negative bacteria (principal); Z68.42 Body mass index [BMI] 45.0-49.9, adult; E11.42 Type 2 diabetes mellitus with diabetic polyneuropathy; I48.92 Unspecified atrial flutter; J98.11 Atelectasis; E66.01 Morbid (severe) obesity due to excess calories; I48.0 Paroxysmal atrial fibrillation; K21.9 Gastro-esophageal reflux disease without esophagitis; E78.5 Hyperlipidemia, unspecified; I10 Essential (primary) hypertension; N40.0 Benign prostatic hyperplasia without lower urinary tract symptoms; M19.91 Primary osteoarthritis, unspecified site; G47.30 Sleep apnea, unspecified; I25.10 Atherosclerotic heart disease of native coronary artery without angina pectoris; Z79.01 Long term (current) use of anticoagulants; Z79.82 Long term (current) use of aspirin; Z79.84 Long term (current) use of oral hypoglycemic drugs; Z79.4 Long term (current) use of insulin; Z79.899 Other long term (current) drug therapy; Z96.41 Presence of insulin pump (external) (internal); Z95.5 Presence of coronary angioplasty implant and graft; Z86.73 Personal history of transient ischemic attack (TIA), and cerebral infarction without residual deficits; Z95.0 Presence of cardiac pacemaker; Z89.422 Acquired absence of other left toe(s); Z98.41 Cataract extraction status, right eye; Z98.42 Cataract extraction status, left eye; Z86.14 Personal history of Methicillin resistant Staphylococcus aureus infection; Z88.1 Allergy status to other antibiotic agents; Z88.5 Allergy status to narcotic agent; Z88.8 Allergy status to other drugs, medicaments and biological substances; Z91.048 Other nonmedicinal substance allergy status; M10.9 Gout, unspecified
CPT/HCPCS: 36415; 71020; 80048; 80053; 80061; 82550; 82553; 83036; 83605; 83735; 83880; 84484; 85025; 85610; 85730; 87040; 87070; 87205; 93005; 93306; 94640; 94760; 96374; 99291

== ENCOUNTER → 2016-12-25 | Outpatient (CLI) | payer MEDICARE ==
[2016-12-25 12:17] LABS: Basophils # (A) 0.1 k/uL (0-0.2); Basophils % (A) 1 %; CH 29.5; CHCM 32.8; Eosinophils # (A) 0.7 k/uL (0-0.7); Eosinophils % (A) 9 %; HDW 3.19; HGB 13.2 gm/dL (13.0-17.5); Luc # (Auto) 0.25; Luc % (Auto) 3; Lymphocytes # (A) 2.3 k/uL (1.0-4.8); Lymphocytes % (A) 27 %; MCH 30.6 pg (25.0-35.0); MCHC 33.8 g/dL (31.0-37.0); MCV 90.5 fL (80.0-100.0); Mean Platelet Volume 7.3; Monocytes # (A) 0.5 k/uL (0-1.0); Monocytes % (A) 6 %; Neutrophils # (A) 4.5 k/uL (1.3-7.7); Neutrophils % (A) 54 %; RDW 14.6 % (11.5-15.5); WBC 8.3 k/uL (3.8-10.6); WBC (Perox) 8.74
== END | disposition home or self-care (01) ==
LOC: LABWHC1 11:52
PROVIDERS: ATTEND Hospitalist
DX: J18.9 Pneumonia, unspecified organism (principal)
CPT/HCPCS: 36415; 85025

== ENCOUNTER → 2017-03-14 | Outpatient (CLI) | payer MEDICARE ==
[2017-03-14 19:10] LABS: Blood Urea Nitrogen 15 mg/dL (9-20); Non-African American GFR(MDRD) >60 (>60 ml/min/1.73 sqM)
--- NOTE | 2017-03-14 19:44 | CT ---
EXAMINATION TYPE: CT chest w con DATE OF EXAM: 03/14/2017 COMPARISON: NONE HISTORY: Recurrent pneumonia. CT DLP: 641.6 mGycm Automated exposure control for dose reduction was used. CONTRAST: CT scan of the chest is performed with IV Contrast, patient injected with 100 mL of Omnipaque 240. FINDINGS: There is some mild reticular density at the left lung base. There is mild pleural thickening at the l eft posterior lung base. There is no pericardial effusion. Thoracic aorta is atheromatous. There is n o mediastinal adenopathy. There are no hilar masses. There is no sign of a pulmonary mass. IMPRESSION: There is a minimal reticular infiltrate at the left lung base that is increased compared to last exam. No evidence of a pulmonary mass. Atherosclerotic vascular disease. Stable 1.5 cm left renal cortical cyst. There are some ankylotic changes in the thoracic spine that could relate to ankylosing spondylitis.
== END ==
LOC: RADCTMAIN 18:09
PROVIDERS: ATTEND Internal Medicine
DX: I70.0 Atherosclerosis of aorta (principal); R91.8 Other nonspecific abnormal finding of lung field; N28.1 Cyst of kidney, acquired; I70.90 Unspecified atherosclerosis
CPT/HCPCS: 82565; 84520; 71260; 36415; Q9967